=== PATIENT | female | born 1940 | race Caucasian/White ===

== ENCOUNTER → 2017-05-26 12:56 | Outpatient (POV) | payer MEDICARE, OTHER, SELFPAY | PROVIDERS: Visit Provider Nurse Practitioner Acute Care | DX: Z00.00 Encounter for general adult medical examination without abnormal findings (principal) ==

== ENCOUNTER → 2017-07-21 10:39 | Outpatient (POV) | payer MEDICARE, OTHER, SELFPAY | PROVIDERS: Family Provider Nurse Practitioner Family; Visit Provider Nurse Practitioner Acute Care | DX: Z00.00 Encounter for general adult medical examination without abnormal findings (principal) ==

== ENCOUNTER → 2019-10-27 09:37 | Outpatient (CLI) | payer MEDICARE, OTHER, SELFPAY ==
[2019-10-27 14:13] LABS: Basophils % 0.8 % (0.1-2.0); Eosinophils # 0.2 K/mm3 (0.0-0.4); Eosinophils % 4.4 % (0.1-12.0); Hematocrit 37.8 % (37.0-47.0); Hemoglobin 12.3 g/dL (12.2-16.2); Lymphocytes # 1.3 K/mm3 (0.7-4.5); Lymphocytes % 24.5 % (10-50); Mean Corpuscular HGB Conc 32.5 g/dL (31.8-35.4); Mean Corpuscular Volume 92.1 fl (81-99); Monocytes # 0.3 K/mm3 (0.1-1.0); Monocytes % 4.8 % (1.7-9.3); Neutrophils # 3.5 K/mm3 (1.8-7.8); Neutrophils % 65.5 % (37.0-80.0); Platelet Count 331 K/mm3 (142-424); Red Blood Count 4.11 M/mm3 (4.20-5.40); Red Cell Distribution Width 14.8 % (11.5-17.5); White Blood Count 5.4 K/mm3 (4.8-10.8)
[2019-10-27 14:19] LABS: Alanine Aminotransferase 12 U/L (12-78); Albumin Level 4.1 g/dl (3.5-5.0); Albumin/Globulin Ratio 1.8 (1.1-1.8); Alkaline Phosphatase 93 U/L (38-126); Anion Gap 14.4 mEq/L (5-15); Aspartate Amino Transferase 17 U/L (14-36); Bilirubin,Total 0.3 mg/dl (0.2-1.3); Blood Urea Nitrogen 18 mg/dl (7-17); Calcium 9.3 mg/dl (8.4-10.2); Carbon Dioxide 26 mmol/L (22.0-30.0); Chloride 105 mmol/L (98-107); Estimated Glomerular Filt Rate 33 ml/min (>60); GFR (African American) 40 ML/MIN (>60); Globulin 2.3 g/dL (1.3-3.2); Glucose 122 mg/dl (74-100); Iron 26 ug/dL (37-170); Potassium 4.4 mmoL/L (3.5-5.1); Sodium 141 mmol/L (136-145); Total Protein,Serum 6.4 g/dl (6.3-8.2)
[2019-10-27 14:34] LABS: Total Iron Binding Capacity 325 ug/dL (265-497)
[2019-10-28 12:35] LABS: Folate >20.0 ng/mL (>3.0); Vitamin B12 1725 pg/mL (232-1245)
== END ==
PROVIDERS: PCP Nurse Practitioner Family; Visit Provider Internal Medicine Hematology & Oncology
DX: D50.9 Iron deficiency anemia, unspecified (principal)
CPT/HCPCS: 36415; 80053; 82607; 82728; 82746; 83540; 83550; 85025

== ENCOUNTER → 2020-03-27 16:37 | Outpatient (CLI) | payer MEDICARE, OTHER, SELFPAY ==
[2020-03-27 16:41] LABS: Microscopic, Urine URINE MICROSCOPIC (MICROSCOPIC)
[2020-03-27 18:14] LABS: Appearance,Urine CLEAR (Clear); Bilirubin,Urine Negative (Negative); Blood, Urine TRACE-I (Negative); Color,Urine YELLOW (Yellow); Glucose,Urine (UA) Negative (Negative); Ketones,Urine Negative (Negative); Leukocyte Esterase,Urine Negative (Negative); Nitrate,Urine Negative (Negative); PH,Urine 5.5 (5.0-8.5); Protein,Urine Negative (Negative); Specific Gravity, Urine >= 1.030 (1.005-1.030); Urobilinogen,Urine 0.2 EU/dl (0.2)
[2020-03-27 18:24] LABS: Creatinine,Urine Random 201 mg/dL (Not Estab.)
== END ==
PROVIDERS: Visit Provider Internal Medicine Nephrology
DX: N18.30 Chronic kidney disease, stage 3 unspecified (principal)
CPT/HCPCS: 81001; 82570; 84155; 84156; 84166

== ENCOUNTER → 2020-04-27 12:43 | Outpatient (CLI) | payer MEDICARE, OTHER, SELFPAY ==
--- NOTE | 2020-04-27 12:48 | US_ITS ---
PROCEDURE: US KIDNEY CLINICAL INDICATION: CKD STAGE 3 COMPARISON: No exams were available for comparison FINDINGS: The right kidney is [id number]. No hydronephrosis, or renal mass or perinephric fluid collection is evident. The left kidney is [id number]. No hydronephrosis, or renal mass or perinephric fluid collection is evident. There is bilateral renal cortical thinning IMPRESSION: Bilateral renal cortical thinning otherwise negative renal ultrasound Dictated by: Marv Washington MD 04/27/2020 17:50 Marv Washington MD in [place] 04/27/2020 17:50
== END ==
PROVIDERS: PCP Nurse Practitioner Family; Visit Provider Internal Medicine Nephrology
DX: N18.30 Chronic kidney disease, stage 3 unspecified (principal)
CPT/HCPCS: 76770

== ENCOUNTER → 2020-05-12 09:55 | Outpatient (CLI) | payer MEDICARE, OTHER, SELFPAY ==
[2020-05-12 09:59] LABS: Microscopic, Urine URINE MICROSCOPIC (MICROSCOPIC)
[2020-05-12 13:49] LABS: Basophils # 0.1 K/mm3 (0-0.2); Basophils % 1.3 % (0.1-2.0); Eosinophils # 0.3 K/mm3 (0.0-0.4); Eosinophils % 5.3 % (0.1-12.0); Hematocrit 43.3 % (37.0-47.0); Hemoglobin 13.9 g/dL (12.2-16.2); Lymphocytes # 1.1 K/mm3 (0.7-4.5); Lymphocytes % 21.3 % (10-50); Mean Corpuscular Hemoglobin 30.1 pg (27.0-31.2); Mean Corpuscular Volume 93.8 fl (81-99); Mean Platelet Volume 8.6 fl (7.4-10.4); Monocytes # 0.3 K/mm3 (0.1-1.0); Monocytes % 5.9 % (1.7-9.3); Neutrophils # 3.4 K/mm3 (1.8-7.8); Neutrophils % 66.3 % (37.0-80.0); Platelet Count 316 K/mm3 (142-424); Red Blood Count 4.61 M/mm3 (4.20-5.40); White Blood Count 5.1 K/mm3 (4.8-10.8)
[2020-05-12 13:55] LABS: Albumin Level 3.8 g/dl (3.5-5.0); Anion Gap 15.9 mEq/L (5-15); Blood Urea Nitrogen 14 mg/dl (7-17); Calcium 9.5 mg/dl (8.4-10.2); Carbon Dioxide 24 mmol/L (22.0-30.0); Chloride 106 mmol/L (98-107); Estimated Glomerular Filt Rate 36 ml/min (>60); GFR (African American) 44 ML/MIN (>60); Glucose 160 mg/dl (74-100); Potassium 3.9 mmoL/L (3.5-5.1); Sodium 142 mmol/L (136-145)
[2020-05-12 14:09] LABS: Intact Parathyroid Hormone 26.4 pg/mL (7.5-53.5)
[2020-05-12 14:13] LABS: 25-OH Vitamin D, Total 13.9 ng/mL (30-100)
[2020-05-12 14:27] LABS: Creatinine,Urine Random 253 mg/dL (Not Estab.)
[2020-05-12 14:56] LABS: Appearance,Urine Turbid (Clear); Bilirubin,Urine Negative (Negative); Blood, Urine TRACE-I (Negative); Color,Urine YELLOW (Yellow); Glucose,Urine (UA) Negative (Negative); Ketones,Urine Negative (Negative); Leukocyte Esterase,Urine Negative (Negative); Nitrate,Urine Negative (Negative); Protein,Urine TRACE (Negative); Specific Gravity, Urine >= 1.030 (1.005-1.030); Urobilinogen,Urine 0.2 EU/dl (0.2)
[2020-05-12 15:00] LABS: Bacteria,Urine 2+ /lpf
[2020-05-16 11:22] LABS: Calcium, Ionized 5.2 mg/dL (4.5-5.6)
== END ==
PROVIDERS: Visit Provider Internal Medicine Nephrology
DX: N18.30 Chronic kidney disease, stage 3 unspecified (principal); E55.9 Vitamin D deficiency, unspecified; R82.90 Unspecified abnormal findings in urine
CPT/HCPCS: 36415; 80069; 81001; 82306; 82330; 82570; 83970; 84155; 85025; 87086

== ENCOUNTER → 2020-05-22 14:51 | Outpatient (POV) | payer MEDICARE, OTHER, SELFPAY | PROVIDERS: Visit Provider Internal Medicine Nephrology | DX: Z00.00 Encounter for general adult medical examination without abnormal findings (principal) ==

== ENCOUNTER → 2020-11-09 08:04 | Outpatient (CLI) | payer MEDICARE, OTHER, SELFPAY ==
[2020-11-09 08:08] LABS: Microscopic, Urine URINE MICROSCOPIC (MICROSCOPIC)
[2020-11-09 14:57] LABS: Appearance,Urine CLOUDY (Clear); Blood, Urine TRACE-I (Negative); Color,Urine YELLOW (Yellow); Glucose,Urine (UA) Negative (Negative); Ketones,Urine Negative (Negative); Leukocyte Esterase,Urine Negative (Negative); Nitrate,Urine Negative (Negative); Protein,Urine TRACE (Negative); Specific Gravity, Urine 1.025 (1.005-1.030); Urobilinogen,Urine 0.2 EU/dl (0.2)
[2020-11-09 15:04] LABS: Basophils # 0.1 K/mm3 (0-0.2); Basophils % 1.3 % (0.1-2.0); Eosinophils # 0.2 K/mm3 (0.0-0.4); Eosinophils % 3.5 % (0.1-12.0); Hematocrit 35.2 % (37.0-47.0); Hemoglobin 11.7 g/dL (12.2-16.2); Lymphocytes # 1.2 K/mm3 (0.7-4.5); Lymphocytes % 21.4 % (10-50); Mean Corpuscular HGB Conc 33.2 g/dL (31.8-35.4); Mean Corpuscular Hemoglobin 29.9 pg (27.0-31.2); Mean Corpuscular Volume 89.9 fl (81-99); Mean Platelet Volume 9.6 fl (7.4-10.4); Monocytes # 0.4 K/mm3 (0.1-1.0); Monocytes % 7.1 % (1.7-9.3); Neutrophils # 3.7 K/mm3 (1.8-7.8); Neutrophils % 66.7 % (37.0-80.0); Platelet Count 337 K/mm3 (142-424); Red Blood Count 3.91 M/mm3 (4.20-5.40); Red Cell Distribution Width 14.7 % (11.5-17.5); White Blood Count 5.5 K/mm3 (4.8-10.8)
[2020-11-09 15:17] LABS: Bilirubin,Urine 1+ (Negative)
[2020-11-09 15:24] LABS: Bacteria,Urine 2+ /lpf; WBC,Urine TNTC #/hpf (0-3)
[2020-11-09 15:38] LABS: 25-OH Vitamin D, Total 30.3 ng/mL (30-100)
[2020-11-09 15:46] LABS: Chloride 107 mmol/L (98-107); Sodium 138 mmol/L (136-145)
[2020-11-09 15:47] LABS: Albumin Level 3.4 g/dl (3.5-5.0); Potassium 3.8 mmoL/L (3.5-5.1)
[2020-11-09 15:49] LABS: Anion Gap 11.8 mEq/L (5-15); Blood Urea Nitrogen 14 mg/dl (7-17); Carbon Dioxide 23 mmol/L (22.0-30.0); Estimated Glomerular Filt Rate 36 ml/min (>60); GFR (African American) 44 ML/MIN (>60)
[2020-11-09 15:50] LABS: Calcium 8.6 mg/dl (8.4-10.2); Glucose 129 mg/dl (74-100); Phosphorous 3.9 mg/dl (2.5-4.5)
== END ==
PROVIDERS: Visit Provider Internal Medicine Nephrology
DX: N18.30 Chronic kidney disease, stage 3 unspecified (principal); R82.90 Unspecified abnormal findings in urine
CPT/HCPCS: 36415; 80069; 81001; 82306; 85025; 87086

== ENCOUNTER → 2020-11-16 13:43 | Outpatient (POV) | payer MEDICARE, OTHER, SELFPAY | PROVIDERS: Visit Provider Internal Medicine Nephrology | DX: Z00.00 Encounter for general adult medical examination without abnormal findings (principal) ==

== ENCOUNTER → 2022-01-14 18:25 | Outpatient (CLI) | payer MEDICARE, OTHER, SELFPAY ==
[2022-01-14 18:52] LABS: MANUAL DIFFERENTIAL MANUAL DIFFERENTIAL (MANUAL DIFF); Microscopic, Urine URINE MICROSCOPIC (MICROSCOPIC)
[2022-01-14 19:28] LABS: Appearance,Urine CLOUDY (Clear); Bilirubin,Urine Negative (Negative); Blood, Urine TRACE-L (Negative); Color,Urine YELLOW (Yellow); Glucose,Urine (UA) Negative (Negative); Ketones,Urine Negative (Negative); Leukocyte Esterase,Urine Negative (Negative); Nitrate,Urine Negative (Negative); Protein,Urine TRACE (Negative); Specific Gravity, Urine >= 1.030 (1.005-1.030); Urobilinogen,Urine 0.2 EU/dl (0.2)
[2022-01-14 19:30] LABS: Albumin Level 3.7 g/dl (3.5-5.0); Anion Gap 15.2 mEq/L (5-15); Blood Urea Nitrogen 12 mg/dl (7-17); Calcium 8.8 mg/dl (8.4-10.2); Carbon Dioxide 27 mmol/L (22.0-30.0); Chloride 103 mmol/L (98-107); Estimated Glomerular Filt Rate 36 ml/min (>60); GFR (African American) 43 ML/MIN (>60); Glucose 116 mg/dl (74-100); Phosphorous 3.6 mg/dl (2.5-4.5); Potassium 4.2 mmoL/L (3.5-5.1); Sodium 141 mmol/L (136-145)
[2022-01-14 19:32] LABS: Basophils # 0.1 K/mm3 (0-0.2); Basophils % 1.4 % (0.1-2.0); Eosinophils # 0.4 K/mm3 (0.0-0.4); Eosinophils % 5.9 % (0.1-12.0); Hematocrit 46.8 % (37.0-47.0); Hemoglobin 14.8 g/dL (12.2-16.2); Lymphocytes # 1.8 K/mm3 (0.7-4.5); Lymphocytes % 27.3 % (10-50); Mean Corpuscular HGB Conc 31.6 g/dL (31.8-35.4); Mean Corpuscular Volume 98.1 fl (81-99); Monocytes # 0.6 K/mm3 (0.1-1.0); Monocytes % 9.2 % (1.7-9.3); Neutrophils # 3.7 K/mm3 (1.8-7.8); Neutrophils % 56.2 % (37.0-80.0); Platelet Count 371 K/mm3 (142-424); Red Blood Count 4.77 M/mm3 (4.20-5.40); Red Cell Distribution Width 15.5 % (11.5-17.5); White Blood Count 6.6 K/mm3 (4.8-10.8)
[2022-01-14 19:36] LABS: Creatinine,Urine Random 267 mg/dL (Not Estab.)
[2022-01-14 19:47] LABS: 25-OH Vitamin D, Total 34.2 ng/mL (30-100)
[2022-01-14 20:08] LABS: Bacteria,Urine 1+ /lpf; RBC,Urine Occasional #/hpf (0-3)
[2022-01-14 20:29] LABS: Eosinophils % 5 % (0-3); Lymphocytes % 28 % (10-50); Monocytes % 9 % (2-9); Neutrophils % 58 % (42-76); Platelet Estimate Normal; RBC Morphology Normal; Total Cells Counted 100
== END ==
PROVIDERS: PCP Family Medicine; Visit Provider Internal Medicine Nephrology
DX: N18.32 Chronic kidney disease, stage 3b (principal); E55.9 Vitamin D deficiency, unspecified
CPT/HCPCS: 80069; 81001; 82306; 82570; 83970; 84155; 85007; 85014; 85018; 85048; 85049

== ENCOUNTER → 2022-01-21 12:37 | Outpatient (POV) | payer MEDICARE, OTHER, SELFPAY | PROVIDERS: Visit Provider Internal Medicine Nephrology | DX: Z00.00 Encounter for general adult medical examination without abnormal findings (principal) ==

== ENCOUNTER 2022-07-29 16:02 | Emergency (ER) | payer MEDICARE, OTHER, SELFPAY ==
[2022-07-29 16:04] VITALS: BP 164/79; PULSE 100; RESP 18; TEMP 36.4; O2SAT 100; BMI 24.6
--- NOTE | 2022-07-29 16:11 | PC.NURSE ---
[id number] ED MD AT BEDSIDE FOR EVALUATION
--- NOTE | 2022-07-29 16:15 | XR_ITS ---
PROCEDURE INFORMATION: Exam: XR Chest Exam date and time: 07/29/2022 4:37 PM Age: 82 years old Clinical indication: Pain; On breathing; Additional info: Rib pain TECHNIQUE: Imaging protocol: Radiologic exam of the chest. Views: 1 view. COMPARISON: No relevant prior studies available. FINDINGS: Lungs: Unremarkable. No consolidation. Pleural spaces: Unremarkable. No pleural effusion. No pneumothorax. Heart/Mediastinum: Unremarkable. No cardiomegaly. Bones/joints: Unremarkable. IMPRESSION: No acute findings.
--- NOTE | 2022-07-29 16:33 | ECG_ITS ---
APPROVED REPORT Exam: Resting ECG HR:74 bpm ECG Measurements Heart Rate 74 AXES IL 182 P 75 QRSd 80 QRS 70 QT 363 T 71 QTc 390 Conclusion SINUS RHYTHM LEFT ATRIAL ENLARGEMENT [-0.1mV P-WAVE IN V1/V2] LOW QRS VOLTAGE [QRS DEFLECTION < 0.5/1.0 mV IN LIMB/CHEST LEADS] Late R wave progression - old ABNORMAL ECG UNCONFIRMED REPORT Electronically signed by : Jovany Mark MD 07/29/2022 20:29:00
--- NOTE | 2022-07-29 16:34 | HMH.EDGENADL ---
Discharge Plan Disposition Patient Disposition: Home, Self-Care Condition: Good Prescriptions Prescriptions: New diazepam [Valium] 2 mg tablet 2 mg PO BID Qty: 14 0RF tramadol 50 mg tablet 50 mg PO Q8H PRN (Reason: pain) Qty: 21 0RF No Action omeprazole 40 mg capsule,delayed release(DR/EC) 40 mg PO DAILY cyanocobalamin (vitamin B-12) 2,500 mcg tablet 2,500 mcg PO DAILY cholecalciferol (vitamin D3) [Vitamin D3] 50 mcg (2,000 unit) capsule 50 mcg PO DAILY folic acid 400 mcg tablet 0.4 mg PO DAILY biotin 1,000 mcg tablet,chewable 1,000 mcg PO DAILY zolpidem 5 mg tablet 5 mg PO HS PRN levothyroxine 100 mcg tablet 100 mcg PO DAILY azithromycin [Zithromax] 250 mg tablet See Rx Instructions PO .COMPLEX Qty: 6 0RF Rx Instructions: For 250 mg dose pack: take 500 mg today (day 1), then 250 mg for 4 days (days 2-5) PO codeine-guaifenesin 10-100 mg/5 mL liquid 10 ml PO Q4-6H PRN (Reason: cough) Qty: 120 1RF amlodipine 5 MG tablet 5 mg PO DAILY estradiol 0.5 MG tablet 0.5 mg PO DAILY Label Comments: TAKE 1 TABLET BY MOUTH EVERY DAY losartan 100 MG tablet 100 mg PO DAILY Referrals Follow up/Referrals: Jovany Mark MD [Primary Care Provider] - See instructions Clinical Impressions Clinical Impression: Acute left flank pain, Muscle spasm, Rib pain on left side Instructions Patient Instructions: DI for Low Back Pain Discharge ED Provider: Jacklyn Harper General Adult HPI General Chief complaint: Back Pain/Injury Stated complaint: back spasms Time Seen by Provider: 07/29/22 16:08 Mode of Arrival: Ambulatory Source of Information: Patient Limitations: No Limitations Description of Symptoms (Recalled from ER Triage Doc. by RN): PT WITH C/O LEFT SIDED BACK PAIN AND SPASMS X 1 WEEK, WORSE TODAY History of Present Illness HPI narrative: Patient is a 82-year-old female who is complaining of left-sided flank rib pain. Patient's been having this pain off and on one week. Patient stated that the pain on the left side is significantly worse feels like a spasm. Hurts when she moves or turns. She has been eating and drinking well. No nausea vomiting diarrhea. No urinary symptoms. Onset (ago): week(s) Location: chest, back and abdomen Radiation: non-radiation Severity: moderate Severity scale (1-10): 9 Quality: stabbing and sharp Consistency: constant Relieving factors: none Exacerbating factors: none Associated symptoms: denies other symptoms Treatments prior to arrival: none Related Data Home Medications Medication Instructions Recorded Confirmed amlodipine 5 mg tablet 5 mg PO DAILY htn 09/06/18 03/14/22 estradiol 0.5 mg tablet 0.5 mg PO DAILY uknown 09/06/18 03/14/22 losartan 100 mg tablet 100 mg PO DAILY htn 09/06/18 03/14/22 biotin 1,000 mcg chewable tablet 1,000 mcg PO DAILY 12/26/21 03/14/22 cholecalciferol (vitamin D3) 50 50 mcg PO DAILY 12/26/21 03/14/22 mcg (2,000 unit) capsule (Vitamin D3) cyanocobalamin (vitamin B-12) 2,500 mcg PO DAILY 12/26/21 03/14/22 2,500 mcg tablet folic acid 400 mcg tablet 0.4 mg PO DAILY 12/26/21 03/14/22 levothyroxine 100 mcg tablet 100 mcg PO DAILY thyroid 12/26/21 03/14/22 omeprazole 40 mg capsule,delayed 40 mg PO DAILY GERD 12/26/21 03/14/22 release zolpidem 5 mg tablet 5 mg PO HS PRN 12/26/21 03/14/22 Previous Rx's Medication Instructions Recorded azithromycin 250 mg tablet See Rx Instructions PO .COMPLEX #6 03/14/22 (Zithromax) tabs codeine 10 mg-guaifenesin 100 mg/5 10 ml PO Q4-6H PRN cough #120 mL 03/14/22 mL oral liquid diazepam 2 mg tablet (Valium) 2 mg PO BID #14 tabs 07/29/22 tramadol 50 mg tablet 50 mg PO Q8H PRN pain #21 tabs 07/29/22 Allergies Allergy/AdvReac Type Severity Reaction Status Date / Time cephalexin [From Keflex] Allergy Unknown Verified 03/14/22 09:12 [facility] Disclaimer: The information contained i
[2022-07-29 16:46] LABS: Basophils # 0.1 K/mm3 (0-0.2); Basophils % 0.9 % (0.1-2.0); Eosinophils # 0.2 K/mm3 (0.0-0.4); Eosinophils % 1.9 % (0.1-12.0); Hemoglobin 14.3 g/dL (12.2-16.2); Lymphocytes # 1.3 K/mm3 (0.7-4.5); Mean Corpuscular HGB Conc 31.8 g/dL (31.8-35.4); Mean Corpuscular Hemoglobin 30.9 pg (27.0-31.2); Mean Corpuscular Volume 97.2 fl (81-99); Mean Platelet Volume 8.2 fl (7.4-10.4); Monocytes # 0.7 K/mm3 (0.1-1.0); Monocytes % 7.7 % (1.7-9.3); Neutrophils # 6.6 K/mm3 (1.8-7.8); Neutrophils % 74.5 % (37.0-80.0); Platelet Count 354 K/mm3 (142-424); Red Blood Count 4.63 M/mm3 (4.20-5.40); Red Cell Distribution Width 13.6 % (11.5-17.5); White Blood Count 8.9 K/mm3 (4.8-10.8)
[2022-07-29 16:50] LABS: Chloride 103 mmol/L (98-107); Potassium 3.8 mmoL/L (3.5-5.1); Sodium 139 mmol/L (136-145)
[2022-07-29 16:53] LABS: Alanine Aminotransferase 16 U/L (12-78); Albumin Level 4.4 g/dl (3.5-5.0); Albumin/Globulin Ratio 1.8 (1.1-1.8); Alkaline Phosphatase 86 U/L (38-126); Anion Gap 14.8 mEq/L (5-15); Aspartate Amino Transferase 22 U/L (14-36); Bilirubin,Total 0.5 mg/dl (0.2-1.3); Blood Urea Nitrogen 17 mg/dl (7-17); Calcium 8.8 mg/dl (8.4-10.2); Carbon Dioxide 25 mmol/L (22.0-30.0); Creatine Kinase 39 U/L (30-135); Creatinine Clearance Estimated 25 mL/min (50-200); Estimated Glomerular Filt Rate 33 ml/min (>60); GFR (African American) 40 ML/MIN (>60); Globulin 2.4 g/dL (1.3-3.2); Glucose 113 mg/dl (74-100); Lipase 97 U/L (23-300); Total Protein,Serum 6.8 g/dl (6.3-8.2)
[2022-07-29 16:55] LABS: Activated Partial Thrombo Time 23.9 seconds (22.8-30.6); INR 0.87 (0.9-1.1); Prothrombin Time 9.5 seconds (10.1-12.5)
[2022-07-29 17:03] LABS: Creatine Kinase MB 0.4 ng/ml (0.0-2.03)
[2022-07-29 17:07] LABS: Troponin I < 0.01 ng/ml (0.00-0.034)
[2022-07-29 17:10] LABS: D-Dimer 0.76 ug/mL (0.0-0.5)
[2022-07-29 17:16] VITALS: BP 120/56; PULSE 68; O2SAT 99
--- NOTE | 2022-07-29 17:16 | PC.NURSE ---
checked on pt at this time, pt reports continuing to have back spasms, reports to pt I will notify GERALDINE LOPES, pt states no needs at this time, family at BS
[2022-07-29 17:35] LABS: Microscopic, Urine URINE MICROSCOPIC (MICROSCOPIC)
--- NOTE | 2022-07-29 17:53 | PC.NURSE ---
ROUNDED ON PT, C/O CONTINUED SPASM, NOTIFIED
[2022-07-29 17:59] LABS: Appearance,Urine CLEAR (Clear); Bilirubin,Urine Negative (Negative); Blood, Urine Negative (Negative); Color,Urine YELLOW (Yellow); Glucose,Urine (UA) Negative (Negative); Ketones,Urine Negative (Negative); Leukocyte Esterase,Urine Negative (Negative); Nitrate,Urine Negative (Negative); Protein,Urine Negative (Negative); Urobilinogen,Urine 0.2 EU/dl (0.2)
--- NOTE | 2022-07-29 18:04 | CT_ITS ---
PROCEDURE INFORMATION: Exam: CT Abdomen And Pelvis With Contrast Exam date and time: 07/29/2022 7:28 PM Age: 82 years old Clinical indication: Abdominal pain; Flank; Left; Additional info: Left flank pain TECHNIQUE: Imaging protocol: Computed tomography of the abdomen and pelvis with contrast. Radiation optimization: All CT scans at this facility use at least one of these dose optimization techniques: automated exposure control; mA and/or kV adjustment per patient size (includes targeted exams where dose is matched to clinical indication); or iterative reconstruction. Contrast material: ISOVUE; Contrast volume: 75 ml; Contrast route: IV; REPORTING DATA: Count of CT and Cardiac NM exams in prior 12 months: This patient has received [address] and 0 known cardiac nuclear medicine studies in the 12 months prior to the current study. COMPARISON: US KIDNEY 04/27/2020 1:08 PM FINDINGS: Diaphragm: Moderate sized hiatal hernia. Liver: No mass or hepatomegaly. Gallbladder and bile ducts: Cholecystectomy. Mildly dilated intrahepatic and extrahepatic bile ducts without obstructing stone or mass. Pancreas: Normal. No ductal dilation. Spleen: Normal. No splenomegaly. Adrenal glands: Normal. No mass. Kidneys and ureters: 3 and 2 mm nonobstructing left renal stones. Mild dilatation of the renal pelvis and calices bilaterally without evidence of obstructing ureteral stone or mass. Chronic left renal cortical scarring. Subcentimeter left renal cyst. Stomach and bowel: Colonic diverticulosis. Appendix: No evidence of appendicitis. Intraperitoneal space: Unremarkable. No free air. No significant fluid collection. Vasculature: Moderate atherosclerotic changes are seen within the abdominal aorta and branch vasculature without evidence of aneurysm. Lymph nodes: Unremarkable. No enlarged lymph nodes. Urinary bladder: Unremarkable as visualized. Reproductive: Hysterectomy. Bones/joints: Unremarkable. No acute fracture. Soft tissues: Unremarkable. IMPRESSION: 1. Left-sided nonobstructing nephrolithiasis. 2. Subcentimeter left renal cyst. No follow-up imaging is recommended. 3. Mild bilateral pelvicaliectasis without evidence of obstructing ureteral stone or mass. 4. Hiatal hernia. 5. Diverticulosis. 6. Mildly dilated intrahepatic and extrahepatic bile ducts without evidence of obstructing stone or mass. Possible normal finding following cholecystectomy. Consider MRCP for further evaluation.
--- NOTE | 2022-07-29 18:04 | CT_ITS ---
PROCEDURE INFORMATION: Exam: CTA Chest With Contrast Exam date and time: 07/29/2022 7:28 PM Age: 82 years old Clinical indication: Pain; On breathing; Additional info: Left lung pain/elevated dimer TECHNIQUE: Imaging protocol: Computed tomographic angiography of the chest with contrast. 3D rendering (Not supervised by radiologist): MIP and/or 3D reconstructed images were created by the technologist. Radiation optimization: All CT scans at this facility use at least one of these dose optimization techniques: automated exposure control; mA and/or kV adjustment per patient size (includes targeted exams where dose is matched to clinical indication); or iterative reconstruction. Contrast material: ISOVUE; Contrast volume: 70 ml; Contrast route: INTRAVENOUS (IV); REPORTING DATA: Count of CT and Cardiac NM exams in prior 12 months: This patient has received [address] and 0 known cardiac nuclear medicine studies in the 12 months prior to the current study. COMPARISON: CR XR CHEST PORTABLE 07/29/2022 4:37 PM FINDINGS: Pulmonary arteries: Normal. No pulmonary emboli. Aorta: Mild atherosclerotic changes are seen within the thoracic aorta without evidence of aneurysm. No aortic dissection. Lungs: Unremarkable. No consolidation. No masses. Pleural spaces: Unremarkable. No pneumothorax. No pleural effusion. Heart: Unremarkable. No cardiomegaly. No pericardial effusion. Lymph nodes: Unremarkable. No enlarged lymph nodes. Diaphragm: Hiatal hernia. Bones/joints: Unremarkable. No acute fracture. Soft tissues: Unremarkable. IMPRESSION: No acute findings.
[2022-07-29 18:05] LABS: Lactic Acid 1.3 mmol/L (0.7-2.1)
[2022-07-29 18:30] VITALS: BP 144/65; PULSE 68; O2SAT 97
--- NOTE | 2022-07-29 18:49 | PC.NURSE ---
PT REPORTS NO RELIEF FROM MORPHINE, NOTIFIED
[2022-07-29 19:01] VITALS: BP 151/65; PULSE 83; O2SAT 100
--- NOTE | 2022-07-29 19:01 | PC.NURSE ---
checked on pt at this time, pt reports pain has not improved, but is no worse, pt states does not want any other medication at this time. Asked pt to let staff know if pain worsens, explained to pt we dont want her to be in pain, pt verbalized understanding. explained to pt should go to Ct soon she only has small amount of ivf left. family at BS, call light in reach
[2022-07-29 20:00] VITALS: BP 149/58; PULSE 88; O2SAT 97
[2022-07-29 20:36] LABS: Troponin I < 0.01 ng/ml (0.00-0.034)
[2022-07-29 20:40] VITALS: BP 145/60; PULSE 80; RESP 20; TEMP 36.7; O2SAT 100
== END 2022-07-29 20:47 | disposition home or self-care (01) ==
PROVIDERS: Emergency Provider Emergency Medicine; PCP Internal Medicine Adolescent Medicine
DX: R07.81 Pleurodynia (principal); R10.9 Unspecified abdominal pain
CPT/HCPCS: 71045; 71275; 74177; 80053; 81001; 82550; 82553; 83605; 83690; 84484; 85025; 85378; 85610; 85730; 93005; 96374; 96375; 96376; 99285; J0131; J2405; Q9967

== ENCOUNTER 2022-07-31 08:20 | Observation (INO) | payer MEDICARE, OTHER, SELFPAY ==
[2022-07-31] VITALS (14 sets, daily range): BP systolic 134–177; BP diastolic 58–106; PULSE 78–118; RESP 12–18; TEMP 36.4–36.7; O2SAT 92–99; BMI 24.0; BMI 24.5
--- NOTE | 2022-07-31 | ECG_ITS ---
APPROVED REPORT Exam: Resting ECG HR:104 bpm ECG Measurements Heart Rate 104 AXES MA 172 P 74 QRSd 85 QRS 68 QT 356 T 82 QTc 416 Conclusion SINUS TACHYCARDIA Left atrial abnormality LOW QRS VOLTAGE [QRS DEFLECTION < 0.5/1.0 mV IN LIMB/CHEST LEADS] NONSPECIFIC ST ELEVATION [0.05+ mV ST ELEVATION] ABNORMAL ECG UNCONFIRMED REPORT Electronically signed by : Jovany Mark MD 08/02/2022 14:27:08
[2022-07-31 08:44] LABS: Basophils # 0.1 K/mm3 (0-0.2); Basophils % 0.5 % (0.1-2.0); Eosinophils # 0.1 K/mm3 (0.0-0.4); Eosinophils % 0.8 % (0.1-12.0); Hematocrit 43.3 % (37.0-47.0); Lymphocytes # 1.7 K/mm3 (0.7-4.5); Lymphocytes % 9.5 % (10-50); MANUAL DIFFERENTIAL MANUAL DIFFERENTIAL (MANUAL DIFF); Mean Corpuscular HGB Conc 32.4 g/dL (31.8-35.4); Mean Corpuscular Hemoglobin 31.2 pg (27.0-31.2); Mean Corpuscular Volume 96.4 fl (81-99); Mean Platelet Volume 8.5 fl (7.4-10.4); Monocytes # 1.1 K/mm3 (0.1-1.0); Monocytes % 6.3 % (1.7-9.3); Neutrophils # 14.4 K/mm3 (1.8-7.8); Neutrophils % 82.9 % (37.0-80.0); Platelet Count 441 K/mm3 (142-424); Red Cell Distribution Width 13.6 % (11.5-17.5); White Blood Count 17.4 K/mm3 (4.8-10.8)
[2022-07-31 08:50] LABS: Chloride 104 mmol/L (98-107); Potassium 3.8 mmoL/L (3.5-5.1); Sodium 137 mmol/L (136-145)
[2022-07-31 08:52] LABS: Alanine Aminotransferase 18 U/L (12-78); Aspartate Amino Transferase 23 U/L (14-36); Blood Urea Nitrogen 15 mg/dl (7-17); Creatinine Clearance Estimated 26 mL/min (50-200); Estimated Glomerular Filt Rate 36 ml/min (>60); GFR (African American) 43 ML/MIN (>60)
[2022-07-31 08:53] LABS: Albumin Level 4.1 g/dl (3.5-5.0); Albumin/Globulin Ratio 1.8 (1.1-1.8); Alkaline Phosphatase 81 U/L (38-126); Anion Gap 10.8 mEq/L (5-15); Bilirubin,Total 0.3 mg/dl (0.2-1.3); Calcium 10.1 mg/dl (8.4-10.2); Carbon Dioxide 26 mmol/L (22.0-30.0); Globulin 2.3 g/dL (1.3-3.2); Glucose 156 mg/dl (74-100); Lipase 126 U/L (23-300); Total Protein,Serum 6.4 g/dl (6.3-8.2)
[2022-07-31 08:57] LABS: Eosinophils % 1 % (0-3); Lymphocytes % 15 % (10-50); Monocytes % 5 % (2-9); Neutrophils % 79 % (42-76); Total Cells Counted 100
[2022-07-31 08:58] LABS: RBC Morphology Normal
[2022-07-31 08:59] LABS: Platelet Estimate Slight Increase
--- NOTE | 2022-07-31 09:05 | HMH.EDGENADL ---
Discharge Plan Disposition Patient Disposition: Admitted As Inpatient Condition: Fair Chief Complaint: Abdominal Pain Prescriptions Prescriptions: No Action omeprazole 40 mg capsule,delayed release(DR/EC) 40 mg PO DAILY cyanocobalamin (vitamin B-12) 2,500 mcg tablet 2,500 mcg PO DAILY cholecalciferol (vitamin D3) [Vitamin D3] 50 mcg (2,000 unit) capsule 50 mcg PO DAILY folic acid 400 mcg tablet 0.4 mg PO DAILY biotin 1,000 mcg tablet,chewable 1,000 mcg PO DAILY zolpidem 5 mg tablet 5 mg PO HS PRN levothyroxine 100 mcg tablet 100 mcg PO DAILY azithromycin [Zithromax] 250 mg tablet See Rx Instructions PO .COMPLEX Qty: 6 0RF Rx Instructions: For 250 mg dose pack: take 500 mg today (day 1), then 250 mg for 4 days (days 2-5) PO codeine-guaifenesin 10-100 mg/5 mL liquid 10 ml PO Q4-6H PRN (Reason: cough) Qty: 120 1RF diazepam [Valium] 2 mg tablet 2 mg PO BID Qty: 14 0RF tramadol 50 mg tablet 50 mg PO Q8H PRN (Reason: pain) Qty: 21 0RF amlodipine 5 MG tablet 5 mg PO DAILY estradiol 0.5 MG tablet 0.5 mg PO DAILY Label Comments: TAKE 1 TABLET BY MOUTH EVERY DAY losartan 100 MG tablet 100 mg PO DAILY Referrals Follow up/Referrals: Jovany Mark MD [Primary Care Provider] - See instructions Clinical Impressions Clinical Impression: Enteritis Instructions Patient Instructions: DI for Acute Abdominal Pain Discharge ED Provider: Ludin Reyes General Adult HPI General Chief complaint: Abdominal Pain Stated complaint: chest pain Time Seen by Provider: 07/31/22 08:28 Mode of Arrival: Wheelchair Source of Information: Patient Limitations: No Limitations Description of Symptoms (Recalled from ER Triage Doc. by RN): pt to the ED with epigastric pain that radiates to her middle back since 4am this morning accompanied by an epsiode of vomiting. pt reports she took two dises of omeprezole and 6 rolaids without relief. History of Present Illness HPI narrative: This is an 82-year-old female with history of hypertension and hyperlipidemia as well as anemia necessitating iron infusions presenting with vomiting. Patient states that she has been vomiting since 4 AM on 07/31, today's. Associated with epigastric abdominal pain that is 5 out of 10, does not radiate. Since that time, vomiting has become dark black, but she has not seen any dark stools or bright red blood per vomit or per rectum. Pain is epigastric, she states that it does not radiate and is not associated with fevers, chills, chest pain, shortness of breath, diarrhea, constipation, dysuria or hematuria. No recent travel, environmental exposures, trauma to the area, or any other concerns. Related Data Home Medications Medication Instructions Recorded Confirmed amlodipine 5 mg tablet 5 mg PO DAILY htn 09/06/18 03/14/22 estradiol 0.5 mg tablet 0.5 mg PO DAILY uknown 09/06/18 03/14/22 losartan 100 mg tablet 100 mg PO DAILY htn 09/06/18 03/14/22 biotin 1,000 mcg chewable tablet 1,000 mcg PO DAILY 12/26/21 03/14/22 cholecalciferol (vitamin D3) 50 50 mcg PO DAILY 12/26/21 03/14/22 mcg (2,000 unit) capsule (Vitamin D3) cyanocobalamin (vitamin B-12) 2,500 mcg PO DAILY 12/26/21 03/14/22 2,500 mcg tablet folic acid 400 mcg tablet 0.4 mg PO DAILY 12/26/21 03/14/22 levothyroxine 100 mcg tablet 100 mcg PO DAILY thyroid 12/26/21 03/14/22 omeprazole 40 mg capsule,delayed 40 mg PO DAILY GERD 12/26/21 03/14/22 release zolpidem 5 mg tablet 5 mg PO HS PRN 12/26/21 03/14/22 Previous Rx's Medication Instructions Recorded azithromycin 250 mg tablet See Rx Instructions PO .COMPLEX #6 03/14/22 (Zithromax) tabs codeine 10 mg-guaifenesin 100 mg/5 10 ml PO Q4-6H PRN cough #120 mL 03/14/22 mL oral liquid diazepam 2 mg tablet (Valium) 2 mg PO BID #14 tabs 07/29/22 tramadol 50 mg tablet 50 mg PO Q8H PRN pain #21 tabs 07/29/22 Allergies Allergy/AdvReac Type S
--- NOTE | 2022-07-31 09:08 | XR_ITS ---
FINAL REPORT CLINICAL HISTORY: epigastric pain and vomiting COMPARISON: 07/29/2022 FINDINGS: A single portable view of the chest was obtained. The heart size and pulmonary vascularity are within normal limits. The mediastinum is within normal limits. No acute pulmonary abnormality is identified. The bony thorax is intact. IMPRESSION: No active cardiopulmonary disease. Reviewed, Interpreted and Dictated by Mo Courtney III, MD Transcribed by Britta Bhakta Authenticated and [facility]
[2022-07-31 09:14] LABS: Troponin I < 0.01 ng/ml (0.00-0.034)
--- NOTE | 2022-07-31 09:33 | CT_ITS ---
FINAL REPORT TECHNIQUE: Postcontrast axial images through the abdomen and pelvis were performed. This study was performed with techniques to keep radiation doses as low as reasonably achievable, (ALARA). Individualized dose reduction techniques using automated exposure control or adjustment of mA and/or kV according to the patient's size were employed. CLINICAL HISTORY: bilious vomiting, epigastric abd pain COMPARISON: 07/29/2022 FINDINGS: Abdomen: There is mild atelectasis in the lung bases. There is a moderate hiatal hernia with marked wall edema, new since prior. The stomach is distended and fluid-filled. There are several enlarged lower mediastinal nodes of uncertain etiology, may be reactive versus neoplastic. The liver is normal in size and attenuation. The patient is status post cholecystectomy. The spleen is unremarkable. The adrenals are normal. The pancreas is unremarkable. There are several less than 3 mm nonobstructing left renal stones. Left renal scarring is identified. 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 There is a probable 2nd one in the upper pole of the left kidney. Moderate vascular calcification is identified. The aorta is normal in caliber. There is no free fluid. Pelvis: The appendix is normal. Note is made of sigmoid diverticulosis. There are multiple fluid-filled small bowel loops as well as distal colon wall thickening which are nonspecific, may represent colitis/enteritis. Findings are worse than previous. The urinary bladder is unremarkable. No free fluid, free air, abscess or adenopathy is identified. IMPRESSION: Moderate hiatal hernia with marked wall edema, worse since previous. Persistent lower mediastinal mild adenopathy, may be reactive or neoplastic. Fluid-filled small bowel loops and distal colon wall thickening, may represent enteritis/colitis. Finding is worse than previous. Other findings are stable since recent CT. Reviewed, Interpreted and Dictated by Mo Courtney III, MD Transcribed by Gwen Kunz Authenticated and [facility]
--- NOTE | 2022-07-31 09:55 | PC.NURSE ---
pt returned from radiology.
--- NOTE | 2022-07-31 10:31 | PC.NURSE ---
went in to f/u on pt's pain, pt states pain is unchanged. MD notified and CT scan ordered. pt notified of plan.
[2022-07-31 10:56] LABS: Coronavirus 19, PCR Not Detected (NotDetected); Influenza A, PCR Not Detected (NotDetected); Influenza B, PCR Not Detected (NotDetected)
[2022-07-31 11:11] LABS: Lactic Acid 1.8 mmol/L (0.7-2.1)
[2022-07-31 11:16] LABS: Microscopic, Urine URINE MICROSCOPIC (MICROSCOPIC)
[2022-07-31 11:20] LABS: Appearance,Urine CLEAR (Clear); Bilirubin,Urine Negative (Negative); Blood, Urine TRACE-I (Negative); Color,Urine YELLOW (Yellow); Glucose,Urine (UA) Negative (Negative); Ketones,Urine Negative (Negative); Leukocyte Esterase,Urine Negative (Negative); Nitrate,Urine Negative (Negative); Protein,Urine Negative (Negative); Specific Gravity, Urine <= 1.005 (1.005-1.030); Urobilinogen,Urine 0.2 EU/dl (0.2)
[2022-07-31 11:31] LABS: Bacteria,Urine Trace /lpf; RBC,Urine Occasional #/hpf (0-3); Squamous Epithelial Cell,Urine Occasional #/hpf (0-5)
[2022-07-31 11:42] LABS: Troponin I < 0.01 ng/ml (0.00-0.034)
--- NOTE | 2022-07-31 12:35 | PC.NURSE ---
PER ELIER MCDONALD, PATIENT IS COMPLAINING OF PAIN THAT SEEMS TO BE MORE CHEST
--- NOTE | 2022-07-31 12:44 | PC.NURSE ---
PATIENT ASSISTED TO BATHROOM
--- NOTE | 2022-07-31 12:59 | PC.NURSE ---
dr mita felton
--- NOTE | 2022-07-31 13:01 | PC.NURSE ---
Dr Reyes speaking with Dr Mark
--- NOTE | 2022-07-31 13:35 | HMH.PHAINT1 ---
Pharmacy Intervention Comments: MEDICATION RECONCILIATION COMPLETED ON PATIENT USING EXTERNAL FILL HISTORY FROM PHARMACY AND ANNA REPORT. -KINDRA PORTILLO, HELEND
--- NOTE | 2022-07-31 13:39 | PC.NURSE ---
report called to second floor
--- NOTE | 2022-07-31 13:48 | PC.NURSE ---
arrived by w/c to floor from ED
--- NOTE | 2022-07-31 14:37 | PC.NURSE ---
DAUGHTER TO BRING IN PATIENTS HOME MEDS IN THE AM
[2022-07-31 15:36] LABS: Troponin I < 0.01 ng/ml (0.00-0.034)
[2022-08-01] VITALS (14 sets, daily range): BP systolic 107–145; BP diastolic 51–64; PULSE 85–98; RESP 14–18; TEMP 36.4–37.2; O2SAT 91–98; BMI 25.7
--- NOTE | 2022-08-01 08:31 | EXP.SURG.CON ---
History of Present Illness *Admission Date: 08/01/22 *Reason for visit:: Epigastric pain *History of present illness: Patient is a 82-year-old female from [place] with history of hypertension, hyperlipidemia, anemia requiring iron transfusion, history of myelodysplastic syndrome. She presented to the emergency department early yesterday afternoon on 07/31/2022 with epigastric pain with vomiting. In the emergency department she was given IV fluid bolus, H2 saqib, proton pump inhibitor, GI cocktail. She was noted to have a hemoglobin of 14. Patient underwent CT scan of the abdomen and pelvis which revealed moderate hiatal hernia with marked wall edema, worse since previous. Persistent lower mediastinal mild adenopathy, may be reactive or neoplastic. Fluid-filled small bowel loops and distal colon wall thickening, may represent enteritis/colitis. Finding is worse than previous. Surgical consultation was obtained for possible EGD. She describes her symptoms as mainly substernal spasms . She had been seen in the emergency department 48 hours prior with complaints of severe left-sided rib/flank pain for a week or so. At that time she had undergone CT of the chest to rule out pulmonary embolism which revealed no acute findings . She also underwent a CT scan of the abdomen pelvis at that time which revealed some chronic findings including nephrolithiasis, small left renal cyst, mild bilateral pelvocaliectasis, hiatal hernia, diverticulosis, mildly dilated intra and extrahepatic bile ducts. Patient has previously undergone cholecystectomy. Patient has undergone multiple endoscopic procedures. She had pain endoscopy in [address] Rasheed performed EGD 2014. In 2016 Dr. Dee had performed EGD at which time she had 2 large gastric polyps, 6 cm hiatal hernia, presbyesophagus. Couple weeks later he had performed colonoscopy and she had a 15 mm ascending colon polyp and diverticulosis. She has not had subsequent endoscopic investigation. [facility] Disclaimer: The information contained in this section may have been updated after the patient was seen, as this information can be updated by other users. Medical History (Updated 08/01/22 @ 08:36 by Jovany Mark MD) GERD (gastroesophageal reflux disease) HLD (hyperlipidemia) Hypothyroidism Surgical History History of History of cholecystectomy History of hysterectomy Family History Father Cancer Social History (Updated 07/31/22 @ 14:23 by Aimee Montano RN) Smoking Status: Never smoker alcohol intake: never substance use type: denies use current occupational status: retired Travel in the last 8 weeks: None household members: none housing: apartment Meds Home Medications and Allergies Home Medications Medication Instructions Recorded Confirmed Type amlodipine 5 mg tablet 5 mg PO DAILY Hypertension 09/06/18 07/31/22 History estradiol 0.5 mg tablet 0.5 mg PO DAILY HORMONE REPLACEMENT 09/06/18 07/31/22 History losartan 100 mg tablet 100 mg PO DAILY Hypertension 09/06/18 07/31/22 History biotin 1,000 mcg chewable tablet 1,000 mcg PO DAILY Supplement 12/26/21 07/31/22 History cholecalciferol (vitamin D3) 50 50 mcg PO DAILY Supplement 12/26/21 07/31/22 History mcg (2,000 unit) capsule (Vitamin D3) cyanocobalamin (vitamin B-12) 2,500 mcg PO DAILY Supplement 12/26/21 07/31/22 History 2,500 mcg tablet folic acid 400 mcg tablet 0.4 mg PO DAILY Supplement 12/26/21 07/31/22 History omeprazole 40 mg capsule,delayed 40 mg PO DAILY Acid reflux 12/26/21 07/31/22 History release zolpidem 5 mg tablet 5 mg PO HSP PRN Insomnia 12/26/21 07/31/22 History levothyroxine 75 mcg tablet 75 mcg PO DAILY HYPOTHYROIDISM 07/31/22 07/31/22 History prednisone 20 mg tablet 20 mg PO DAILY STEROID 07/31/22 07/31/22 History New Prescriptions
--- NOTE | 2022-08-01 08:34 | EXP.HP ---
History of Present Illness *Admission Date: 07/31/22 *Reason for visit:: Abdominal pain *History of present illness: 82-year-old white female who is enjoyed excellent health with the exception of iron deficiency anemia and smoldering ill-defined myelodysplastic disease, who follows with hematology at [facility], who has had excellent functional status who over the past couple of weeks has had some back pain that she describes as left upper flank pain that occasionally goes into her stomach. She has had no vomiting or diarrhea. She went to the ER a couple of days ago but was improved after some fluids and sent home. Unfortunately this failed to improve her situation she came back to the emergency department on 07/31/2022 with intractable abdominal pain that was only responsive to Dilaudid. She described her pain as epigastric that flared up into her chest but that would be a 9 out of 10 pain in severity that would last several minutes and then resolved. She was given Zofran, Phenergan, IV fluids and I had the ER doctor gave her 5 mg of Reglan IV but this did not improve her situation and she was admitted for observation and further diagnostic testing. [facility] Disclaimer: The information contained in this section may have been updated after the patient was seen, as this information can be updated by other users. Medical History (Updated 08/01/22 @ 08:36 by Jovany Mark MD) GERD (gastroesophageal reflux disease) HLD (hyperlipidemia) Hypothyroidism Surgical History History of History of cholecystectomy History of hysterectomy Family History Father Cancer Social History (Updated 07/31/22 @ 14:23 by Aimee Montano, RN) Smoking Status: Never smoker alcohol intake: never substance use type: denies use current occupational status: retired Travel in the last 8 weeks: None household members: none housing: apartment Review of Systems Review of Systems Review of systems:: pertinent systems reviewed and negative unless documented below Meds Home Medications and Allergies Home Medications Medication Instructions Recorded Confirmed Type amlodipine 5 mg tablet 5 mg PO DAILY Hypertension 09/06/18 07/31/22 History estradiol 0.5 mg tablet 0.5 mg PO DAILY HORMONE REPLACEMENT 09/06/18 07/31/22 History losartan 100 mg tablet 100 mg PO DAILY Hypertension 09/06/18 07/31/22 History biotin 1,000 mcg chewable tablet 1,000 mcg PO DAILY Supplement 12/26/21 07/31/22 History cholecalciferol (vitamin D3) 50 50 mcg PO DAILY Supplement 12/26/21 07/31/22 History mcg (2,000 unit) capsule (Vitamin D3) cyanocobalamin (vitamin B-12) 2,500 mcg PO DAILY Supplement 12/26/21 07/31/22 History 2,500 mcg tablet folic acid 400 mcg tablet 0.4 mg PO DAILY Supplement 12/26/21 07/31/22 History omeprazole 40 mg capsule,delayed 40 mg PO DAILY Acid reflux 12/26/21 07/31/22 History release zolpidem 5 mg tablet 5 mg PO HSP PRN Insomnia 12/26/21 07/31/22 History levothyroxine 75 mcg tablet 75 mcg PO DAILY HYPOTHYROIDISM 07/31/22 07/31/22 History prednisone 20 mg tablet 20 mg PO DAILY STEROID 07/31/22 07/31/22 History New Prescriptions to Start Prescriptions: Allergies Allergy/AdvReac Type Severity Reaction Status Date / Time cephalexin [From Keflex] Allergy Unknown Verified 03/14/22 09:12 tizanidine [From Zanaflex] Allergy Unknown Verified 07/31/22 14:21 Exam Data for Last 24 hours Vital signs and Labs for Last 24 Hours: Temp Pulse Resp BP Pulse Ox 98.5 F 86 17 130/56 L 92 L 08/01/22 07:51 08/01/22 07:51 08/01/22 07:51 08/01/22 07:51 08/01/22 07:51 Laboratory Results - last 24 hr 07/31/22 08:30: WBC 17.4 H D, RBC 4.50, Hgb 14.0, Hct 43.3, MCV 96.4, MCH 31.2, MCHC 32.4, RDW 13.6, Plt Count 441 H, MPV 8.5, Neut % (Auto) 82.9 H, Lymph % (Auto) 9.5 L, [place] % (Auto) 6.3, Eos % (Au
--- NOTE | 2022-08-01 08:37 | EXP.ACUTE.PN ---
Subjective *Date: 08/01/22 *Time: 08:37 Interval history: Overnight patient felt a little bit better. Is been able to keep some Jell-O down. However, she still has 9 out of 10 intermittent epigastric pain. White count this morning was 17,000. Medical Exam Vital signs and Labs for Last 24 Hours: Vital Signs Temp Pulse Pulse Resp BP BP Pulse Ox 08/01/22 07:51 98.5 F 86 17 130/56 L 92 L 08/01/22 04:00 99.0 F 98 H 17 145/61 H 91 L 07/31/22 19:51 98.1 F 83 16 145/61 H 95 07/31/22 13:54 97.6 F 78 16 136/58 L 94 L 07/31/22 13:30 147/65 H 07/31/22 13:00 140/67 07/31/22 12:30 87 12 149/66 H 96 07/31/22 12:00 92 H 16 156/67 H 92 L 07/31/22 11:30 90 16 154/66 H 94 L 07/31/22 11:00 89 16 152/61 H 95 07/31/22 10:30 91 H 143/70 H 97 07/31/22 10:00 90 154/63 H 97 07/31/22 09:31 118 H 18 177/106 H 99 07/31/22 09:00 97 H 18 150/66 H 98 Intake and Output 07/31/22 08/01/22 08/01/22 19:59 03:59 11:59 Intake Total 0 / 1280 1160 / 1280 120 / 1280 Output Total 0 / 0 0 / 0 0 / 0 Balance 0 / 1280 1160 / 1280 120 / 1280 Intake: Intake, Oral Amount 0 / 120 120 / 120 Intake, Total IV Amount 1160 / 1160 0.9 % Sodium Chloride 1000ML 1, 1160 / 1160 000 ml @ 100 mls/hr IV .Q10H [facility] Rx#:[id number] Output: Output, Urine Amount 0 / 0 0 / 0 0 / 0 Other: Number of Unmeasured Voids 1 1 1 Weight 125 lb 7 oz 131 lb 2 oz Patient Weight 08/01/22 11:59 Weight 131 lb 2 oz Laboratory Results - last 24 hr 07/31/22 08:30: WBC 17.4 H D, RBC 4.50, Hgb 14.0, Hct 43.3, MCV 96.4, MCH 31.2, MCHC 32.4, RDW 13.6, Plt Count 441 H, MPV 8.5, Neut % (Auto) 82.9 H, Lymph % (Auto) 9.5 L, [place] % (Auto) 6.3, Eos % (Auto) 0.8, Baso % (Auto) 0.5, Neut # (Auto) 14.4 H, Lymph # (Auto) 1.7, [place] # (Auto) 1.1 H, Eos # (Auto) 0.1, Baso # (Auto) 0.1, Total Counted 100, Neutrophils % (Manual) 79 H, Lymphocytes % (Manual) 15, Monocytes % (Manual) 5, Eosinophils % (Manual) 1, Platelet Estimate Slight increase, RBC Morphology Normal 07/31/22 08:30: Sodium 137, Potassium 3.8, Chloride 104, Carbon Dioxide 26, Anion Gap 10.8, BUN 15, Creatinine 1.40 H, Estimated Creat Clear 26, Estimated GFR 36 L, Est GFR ( Amer) 43 L, Glucose 156 H, Calcium 10.1, Total Bilirubin 0.3, AST 23, ALT 18, Alkaline Phosphatase 81, Troponin I < 0.01, Total Protein 6.4, Albumin 4.1, Globulin 2.3, Albumin/Globulin Ratio 1.8, Lipase 126 07/31/22 10:38: Lactate 1.8 07/31/22 10:38: Troponin I < 0.01 07/31/22 10:45: SARS-CoV-2 (PCR) Not detected, Influenza A Untype (PCR) Not detected, Influenza Type B (PCR) Not detected 07/31/22 10:55: Urine Color Yellow, Urine Appearance Clear, Urine pH 6.0, Ur Specific [place] <= 1.005, Urine Protein Negative, Urine Glucose (UA) Negative, Urine Ketones Negative, Urine Blood Trace-i, Urine Nitrate Negative, Urine Bilirubin Negative, Urine Urobilinogen 0.2, Ur Leukocyte Esterase Negative, Urine RBC Occasional, Urine WBC None, Ur Squamous Epith Cells Occasional, Urine Bacteria Trace 07/31/22 14:52: Troponin I < 0.01 I & O for Labs for Last 24 Hours: Intake & Output 04/07/30/22 07/31/22 08/01/22 11:59 11:59 11:59 11:59 Intake Total 1280 / 1280 Output Total 0 / 0 Balance 1280 / 1280 Weight 123 lb 131 lb 2 oz Comment:: Alert, pleasant. Lungs clear, heart rate regular rate abdomen soft, very minimal subxiphoid tenderness. No edema or clubbing. Assessment and Plan *Assessment and plan (1) Epigastric pain: Status: Acute Category: Medical Code(s): R10.13 - Epigastric pain (2) Hypertension: Status: Acute Category: Medical Code(s): I10 - Essential (primary) hypertension (3) Anemia: Status: Acute Category: Medical Code(s): D64.9 - Anemia, unspecified (4) Myelodysplastic disease: Status: Acute Category: Medical Code(s): C94.6
--- NOTE | 2022-08-01 08:38 | EXP.ACUTE.PN ---
Subjective *Date: 08/01/22 *Time: 08:38 Interval history: Please note patient is n.p.o. for planned procedure and is have not started any home medications. Medical Exam Vital signs and Labs for Last 24 Hours: Vital Signs Temp Pulse Pulse Resp BP BP Pulse Ox 08/01/22 07:51 98.5 F 86 17 130/56 L 92 L 08/01/22 04:00 99.0 F 98 H 17 145/61 H 91 L 07/31/22 19:51 98.1 F 83 16 145/61 H 95 07/31/22 13:54 97.6 F 78 16 136/58 L 94 L 07/31/22 13:30 147/65 H 07/31/22 13:00 140/67 07/31/22 12:30 87 12 149/66 H 96 07/31/22 12:00 92 H 16 156/67 H 92 L 07/31/22 11:30 90 16 154/66 H 94 L 07/31/22 11:00 89 16 152/61 H 95 07/31/22 10:30 91 H 143/70 H 97 07/31/22 10:00 90 154/63 H 97 07/31/22 09:31 118 H 18 177/106 H 99 07/31/22 09:00 97 H 18 150/66 H 98 Intake and Output 07/31/22 08/01/22 08/01/22 19:59 03:59 11:59 Intake Total 0 / 1280 1160 / 1280 120 / 1280 Output Total 0 / 0 0 / 0 0 / 0 Balance 0 / 1280 1160 / 1280 120 / 1280 Intake: Intake, Oral Amount 0 / 120 120 / 120 Intake, Total IV Amount 1160 / 1160 0.9 % Sodium Chloride 1000ML 1, 1160 / 1160 000 ml @ 100 mls/hr IV .Q10H [facility] Rx#:[id number] Output: Output, Urine Amount 0 / 0 0 / 0 0 / 0 Other: Number of Unmeasured Voids 1 1 1 Weight 125 lb 7 oz 131 lb 2 oz Patient Weight 08/01/22 11:59 Weight 131 lb 2 oz Laboratory Results - last 24 hr 07/31/22 08:30: WBC 17.4 H D, RBC 4.50, Hgb 14.0, Hct 43.3, MCV 96.4, MCH 31.2, MCHC 32.4, RDW 13.6, Plt Count 441 H, MPV 8.5, Neut % (Auto) 82.9 H, Lymph % (Auto) 9.5 L, [place] % (Auto) 6.3, Eos % (Auto) 0.8, Baso % (Auto) 0.5, Neut # (Auto) 14.4 H, Lymph # (Auto) 1.7, [place] # (Auto) 1.1 H, Eos # (Auto) 0.1, Baso # (Auto) 0.1, Total Counted 100, Neutrophils % (Manual) 79 H, Lymphocytes % (Manual) 15, Monocytes % (Manual) 5, Eosinophils % (Manual) 1, Platelet Estimate Slight increase, RBC Morphology Normal 07/31/22 08:30: Sodium 137, Potassium 3.8, Chloride 104, Carbon Dioxide 26, Anion Gap 10.8, BUN 15, Creatinine 1.40 H, Estimated Creat Clear 26, Estimated GFR 36 L, Est GFR ( Amer) 43 L, Glucose 156 H, Calcium 10.1, Total Bilirubin 0.3, AST 23, ALT 18, Alkaline Phosphatase 81, Troponin I < 0.01, Total Protein 6.4, Albumin 4.1, Globulin 2.3, Albumin/Globulin Ratio 1.8, Lipase 126 07/31/22 10:38: Lactate 1.8 07/31/22 10:38: Troponin I < 0.01 07/31/22 10:45: SARS-CoV-2 (PCR) Not detected, Influenza A Untype (PCR) Not detected, Influenza Type B (PCR) Not detected 07/31/22 10:55: Urine Color Yellow, Urine Appearance Clear, Urine pH 6.0, Ur Specific [place] <= 1.005, Urine Protein Negative, Urine Glucose (UA) Negative, Urine Ketones Negative, Urine Blood Trace-i, Urine Nitrate Negative, Urine Bilirubin Negative, Urine Urobilinogen 0.2, Ur Leukocyte Esterase Negative, Urine RBC Occasional, Urine WBC None, Ur Squamous Epith Cells Occasional, Urine Bacteria Trace 07/31/22 14:52: Troponin I < 0.01 I & O for Labs for Last 24 Hours: Intake & Output 07/29/22 07/30/22 07/31/22 08/01/22 11:59 11:59 11:59 11:59 Intake Total 1280 / 1280 Output Total 0 / 0 Balance 1280 / 1280 Weight 123 lb 131 lb 2 oz
--- NOTE | 2022-08-01 11:28 | PC.NURSE ---
pt transported to pre op via stretcher.
--- NOTE | 2022-08-01 12:06 | P.PN_ITS ---
[facility] Disclaimer: The information contained in this section may have been updated after the patient was seen, as this information can be updated by other users. Medical History (Updated 08/01/22 @ 08:36 by Jovany Mark MD) GERD (gastroesophageal reflux disease) HLD (hyperlipidemia) Hypothyroidism Surgical History History of History of cholecystectomy History of hysterectomy Family History Father Cancer Social History (Updated 07/31/22 @ 14:23 by Aimee Montano, FRANCI) Smoking Status: Never smoker alcohol intake: never substance use type: denies use current occupational status: retired Travel in the last 8 weeks: None household members: none housing: apartment [facility] Anesthesia Checklist Patient Identification Patient Identification: Arm Band Structural Data Admitted From: Inpatient Planned Operative Procedure/s: EGD Consent for Planned Operative Procedure(s) Verified: Yes Verified Documents: Surgical Consent and History and Physical NPO Status Verified Time NPO: 00:00 Additional verifications Anesthesia Reactions: No Airway Assessment C-Spine Mobility Assessed: Yes TMJ Mobility Assessed: Yes Dentition: Edentulous Neurological Assessment Level of Consciousness: Awake and Alert Anesthesia Plan Anesthesia Risk discussed: Yes Anesthesia Plan: Verified ASA Class: II Anesthesia Type: MAC
--- NOTE | 2022-08-01 12:59 | HMH.SCOPE ---
Procedure: Date: 08/01/22 Patient Date of :: 1940 Procedure Performed:: Esophagogastroduodenoscopy with biopsies using cold biopsy forceps and hot snare. Indications:: Patient is an 82-year-old female with history of myelodysplastic syndrome. She was admitted after presentation to the emergency department with symptoms described as substernal pain and spasms with some associated vomiting. She had an abnormal CT scan. Surgical consultation was obtained for endoscopy. Performing Provider:: Mo Caldwell MD Referring Provider:: Jovany Mark MD Sedation:: MAC sedation Procedure:: Patient was taken to endoscopy procedure room. She was positioned in lateral decubitus position. Adequate intravenous sedation was achieved with anesthesia titration of propofol. Olympus endoscope was inserted via the oropharynx. Esophagus was cannulated. There was some minor cricopharyngeal spasm. Proximal esophagus revealed evidence of presbyesophagus consistent with some minor esophageal dysmotility. At approximately 25 cm there was encountered moderate to moderately severe erosive esophagitis which was noted between 25 and 30 cm. This could be consistent with candidal esophagitis as well. Gastroesophageal junction was encountered at 30 cm. Stomach was cannulated. There is a moderate hiatal hernia. Most notable within the gastric lumen were polypoid exudative diffuse masslike lesions in the proximal stomach in the fundus. This is of an uncertain etiology. In the antrum there was evidence of moderate nonerosive gastritis. Pylorus was traversed. Duodenum appeared unremarkable. Gastric antral mucosal biopsies were obtained. Biopsies were obtained in the fundus of the exudative polypoid type lesions. It was felt that this may be potentially nondiagnostic and therefore larger biopsies were obtained using the hot snare. Endoscope was withdrawn with the specimen. It was then reinserted and additional biopsies were obtained in a similar fashion. A couple biopsies using cold biopsy forceps were obtained of the distal esophagus. Endoscope was reinserted and the stomach was desufflated and the endoscope was withdrawn. Findings:: Minor cricopharyngeal spasm Presbyesophagus consistent with some esophageal dysmotility Exudative erosions in the esophagus between 25 and 30 cm. Possibly erosive esophagitis versus candidal esophagitis Gastroesophageal junction at 30 cm Moderate hiatal hernia Polypoid erosive exudative lesions diffusely in the fundus and cardia, inflammatory versus neoplastic Recommendations:: Additional treatment pending pathology Complications:: None immediate Estimated blood obtained (mL): 3
--- NOTE | 2022-08-01 15:54 | PC.NURSE ---
A&OX4. RESPIRATIONS REGULAR AND UNLABORED. LUNG SOUNDS CLEAR THROUGHOUT. NO COUGH NOTED. PT ON RA TOLERATING WELL. HEART RATE REGULAR. +2 PULSES NOTED THROUGHOUT. NO EDEMA NOTED. ABDOMEN SOFT AND NONTENDER. ACTIVE BOWEL SOUNDS HEARD THROUGHOUT. NO BM THUS FAR. PT AMBULATES TO RESTROOM INDEPENDENTLY WITH STEADY GAIT NOTED. NO PAIN REPORTED THUS FAR. NS INFUSING AT 100ML/HR. HAND TECHNICAL SUPERVISOR EQUAL. IV INFILTRATED AT BEGINNING OF SHIFT. NEW IV INSERTED AND HAS BEEN GOOD THUS FAR. FAMILY HAS REMAINED AT BEDSIDE THROUGHOUT SHIFT. PT HAD EGD THIS AM AND TOLERATED WELL. TOLERATING CLEAR LIQUID DIET WELL AFTER PROCEDURE. NO QUESTIONS OR CONCERNS VOICED FROM FAMILY OR PT THUS FAR. BED IN LOWEST POSITION. CALL LIGHT WITHIN REACH. WILL CONTINUE TO MONITOR.
--- NOTE | 2022-08-01 16:24 | EXP.DC.SUM ---
General Admission date:: 07/31/22 Discharge date: 08/01/22 HPI HPI HPI: Patient is a 82-year-old female from [place] with history of hypertension, hyperlipidemia, anemia requiring iron transfusion, history of myelodysplastic syndrome. She presented to the emergency department early yesterday afternoon on 07/31/2022 with epigastric pain with vomiting. In the emergency department she was given IV fluid bolus, H2 saqib, proton pump inhibitor, GI cocktail. She was noted to have a hemoglobin of 14. Patient underwent CT scan of the abdomen and pelvis which revealed moderate hiatal hernia with marked wall edema, worse since previous. Persistent lower mediastinal mild adenopathy, may be reactive or neoplastic. Fluid-filled small bowel loops and distal colon wall thickening, may represent enteritis/colitis. Finding is worse than previous. Surgical consultation was obtained for possible EGD. She describes her symptoms as mainly substernal spasms . She had been seen in the emergency department 48 hours prior with complaints of severe left-sided rib/flank pain for a week or so. At that time she had undergone CT of the chest to rule out pulmonary embolism which revealed no acute findings . She also underwent a CT scan of the abdomen pelvis at that time which revealed some chronic findings including nephrolithiasis, small left renal cyst, mild bilateral pelvocaliectasis, hiatal hernia, diverticulosis, mildly dilated intra and extrahepatic bile ducts. Patient has previously undergone cholecystectomy. Patient has undergone multiple endoscopic procedures. She had pain endoscopy in [address] Rasheed performed EGD 2014. In 2017 Dr. Dee had performed EGD at which time she had 2 large gastric polyps, 6 cm hiatal hernia, presbyesophagus. Couple weeks later he had performed colonoscopy and she had a 15 mm ascending colon polyp and diverticulosis. She has not had subsequent endoscopic investigation. Hospital Course Hospital Course Hospital Course: Patient was admitted. Pain control was achieved with Dilaudid. She felt better after some liquids. Continue to have some epigastric pain. Abnormal CT scan was noted of her distal esophagus. EGD was done by Dr. Caldwell-very much appreciate input. Moderately severe erosive esophagitis and features consistent with possible candidal esophagitis were noted. Patient tolerated the procedure well. Biopsies were taken. After the procedure patient woke up well, tolerated liquids well and wished to be discharged home. Plan will be to discharge home with Diflucan therapy, sucralfate for her erosive esophagitis and continued PPI therapy. I will see her in 48 hours. Exam Data for Last 24 hours Vital signs and Labs for Last 24 Hours: Temp Pulse Resp BP Pulse Ox 98.3 F 90 18 125/57 L 93 L 08/01/22 16:05 08/01/22 16:05 08/01/22 16:05 08/01/22 16:05 08/01/22 16:05 I & O for Last 24 hours: Intake & Output 07/30/22 07/31/22 08/01/22 08/02/22 11:59 11:59 11:59 11:59 Intake Total 1280 / 1280 Output Total 0 / 0 0 / 0 Balance 1280 / 1280 0 / 0 Weight 123 lb 131 lb 2 oz Constitutional Constitutional: no acute distress *Routine HEENT Exam Head: Present normocephalic Eye: Present EOMI and PERRL ENT: Present mucous membranes moist *Routine Neck Exam Neck: Present supple; Absent lymphadenopathy *Routine Respiratory Exam Respiratory: Present CTA bilaterally *Routine Cardiovascular Exam Cardiovascular: Present RRR *Routine Abdominal Exam Abdominal: Present soft and normoactive bowel sounds; Absent tenderness *Routine Extremities Exam Extremities: Absent cyanosis, clubbing or edema *Routine Skin Exam Skin: Present warm; Absent rash *Routine Neurological Exam Neurological: Present alert and oriented X3 DS: Diagnosis Discharge Diagnosis (1) Epigastric pain: Status: Acute Meds Home Medications and Allergies Home Medications Medication Instructio
--- NOTE | 2022-08-02 14:03 | CARE MANAGER ---
Spoke with patient for post-discharge phone interview, no issues noted.
== END 2022-08-01 16:54 | disposition home or self-care (01) ==
LOC: ER 13:10 → 2ND 13:51
PROVIDERS: Surgery; Admitting Provider Internal Medicine Adolescent Medicine; Emergency Provider Emergency Medicine; PCP Internal Medicine Adolescent Medicine; Visit Provider Internal Medicine Adolescent Medicine
PROC: 0DJ08ZZ Inspection of Upper Intestinal Tract, Via Natural or Artificial Opening Endoscopic (ICD-10-PCS; CPT 43235; principal; 2022-08-01 12:00)
DX: R10.13 Epigastric pain (principal); D64.9 Anemia, unspecified; N18.9 Chronic kidney disease, unspecified; E03.9 Hypothyroidism, unspecified; Z79.899 Other long term (current) drug therapy; Z79.890 Hormone replacement therapy; I12.9 Hypertensive chronic kidney disease with stage 1 through stage 4 chronic kidney disease, or unspecified chronic kidney disease; D46.9 Myelodysplastic syndrome, unspecified; Z20.822 Contact with and (suspected) exposure to COVID-19; K31.7 Polyp of stomach and duodenum; K44.9 Diaphragmatic hernia without obstruction or gangrene; K22.4 Dyskinesia of esophagus
CPT/HCPCS: 43239; 43251; G0378; 36415; 71045; 74177; 80053; 81001; 83605; 83690; 84484; 85007; 85025; 88305; 88342; 93005; 99285; C9803; J2405; Q9967; U0003; U0005

== ENCOUNTER → 2022-08-03 11:23 | Outpatient (CLI) | payer MEDICARE, OTHER, SELFPAY ==
[2022-08-03 11:45] LABS: Basophils % 0.4 % (0.1-2.0); Eosinophils # 0.2 K/mm3 (0.0-0.4); Eosinophils % 2.6 % (0.1-12.0); Hemoglobin 13.2 g/dL (12.2-16.2); Lymphocytes # 1.2 K/mm3 (0.7-4.5); Lymphocytes % 14.6 % (10-50); Mean Corpuscular HGB Conc 32.1 g/dL (31.8-35.4); Mean Corpuscular Hemoglobin 31.1 pg (27.0-31.2); Mean Corpuscular Volume 96.8 fl (81-99); Monocytes # 0.6 K/mm3 (0.1-1.0); Monocytes % 7.1 % (1.7-9.3); Neutrophils % 75.3 % (37.0-80.0); Platelet Count 335 K/mm3 (142-424); Red Blood Count 4.24 M/mm3 (4.20-5.40); Red Cell Distribution Width 13.7 % (11.5-17.5)
[2022-08-03 12:25] LABS: Chloride 102 mmol/L (98-107); Potassium 3.7 mmoL/L (3.5-5.1); Sodium 138 mmol/L (136-145)
[2022-08-03 12:27] LABS: Alanine Aminotransferase 20 U/L (12-78); Aspartate Amino Transferase 30 U/L (14-36); Blood Urea Nitrogen 11 mg/dl (7-17); Estimated Glomerular Filt Rate 36 ml/min (>60); GFR (African American) 43 ML/MIN (>60)
[2022-08-03 12:28] LABS: Albumin Level 3.7 g/dl (3.5-5.0); Albumin/Globulin Ratio 1.8 (1.1-1.8); Alkaline Phosphatase 81 U/L (38-126); Anion Gap 10.7 mEq/L (5-15); Bilirubin,Total 0.7 mg/dl (0.2-1.3); Calcium 8.7 mg/dl (8.4-10.2); Carbon Dioxide 29 mmol/L (22.0-30.0); Globulin 2.1 g/dL (1.3-3.2); Glucose 106 mg/dl (74-100); Iron 39 ug/dL (37-170); Total Protein,Serum 5.8 g/dl (6.3-8.2)
[2022-08-03 12:37] LABS: Total Iron Binding Capacity 208 ug/dL (265-497)
[2022-08-03 13:03] LABS: Ferritin 103 ng/ml (11.1-264)
== END ==
PROVIDERS: PCP Nurse Practitioner Family; Visit Provider Nurse Practitioner Family
DX: K29.00 Acute gastritis without bleeding (principal); E61.1 Iron deficiency
CPT/HCPCS: 36415; 80053; 82728; 83540; 83550; 85025

== ENCOUNTER → 2023-02-05 15:37 | Outpatient (CLI) | payer MEDICARE, OTHER, SELFPAY ==
[2023-02-05 15:48] LABS: Microscopic, Urine URINE MICROSCOPIC (MICROSCOPIC)
[2023-02-05 16:56] LABS: Hemoglobin 14.1 g/dL (12.2-16.2); Mean Corpuscular HGB Conc 33.7 g/dL (31.8-35.4); Mean Corpuscular Hemoglobin 34.2 pg (27.0-31.2); Mean Corpuscular Volume 101.6 fl (81-99); Platelet Count 351 K/mm3 (142-424); Red Blood Count 4.13 M/mm3 (4.20-5.40); Red Cell Distribution Width 13.6 % (11.5-17.5); White Blood Count 5.5 K/mm3 (4.8-10.8)
[2023-02-05 17:09] LABS: Appearance,Urine CLEAR (Clear); Bilirubin,Urine Negative (Negative); Blood, Urine TRACE-I (Negative); Color,Urine YELLOW (Yellow); Glucose,Urine (UA) Negative (Negative); Ketones,Urine Negative (Negative); Leukocyte Esterase,Urine Negative (Negative); Nitrate,Urine Negative (Negative); Protein,Urine Negative (Negative); Specific Gravity, Urine 1.025 (1.005-1.030); Urobilinogen,Urine 0.2 EU/dl (0.2)
[2023-02-05 17:14] LABS: Total Protein,Urine Random < 5.0 mg/dL (0.0-12.0)
[2023-02-05 17:15] LABS: Creatinine,Urine Random 142 mg/dL (Not Estab.)
[2023-02-05 17:16] LABS: RBC,Urine Occasional #/hpf (0-3); Squamous Epithelial Cell,Urine Occasional #/hpf (0-5)
[2023-02-05 18:11] LABS: Anion Gap 14.8 mEq/L (5-15); Blood Urea Nitrogen 19 mg/dl (7-17); Calcium 9.2 mg/dl (8.4-10.2); Carbon Dioxide 24 mmol/L (22.0-30.0); Chloride 104 mmol/L (98-107); Estimated Glomerular Filt Rate 33 ml/min (>60); GFR (African American) 40 ML/MIN (>60); Glucose 100 mg/dl (74-100); Phosphorous 4.1 mg/dl (2.5-4.5); Potassium 4.8 mmoL/L (3.5-5.1); Sodium 138 mmol/L (136-145)
[2023-02-05 18:22] LABS: Intact Parathyroid Hormone 44.7 pg/mL (7.5-53.5)
[2023-02-05 18:27] LABS: 25-OH Vitamin D, Total 36.3 ng/mL (30-100)
== END ==
PROVIDERS: PCP Internal Medicine Adolescent Medicine; Visit Provider Internal Medicine Nephrology
DX: N18.32 Chronic kidney disease, stage 3b (principal); E55.9 Vitamin D deficiency, unspecified; Z68.24 Body mass index [BMI] 24.0-24.9, adult
CPT/HCPCS: 36415; 80069; 81001; 82306; 82570; 83970; 84155; 85014; 85018; 85048; 85049

== ENCOUNTER → 2023-02-13 12:35 | Outpatient (POV) | payer MEDICARE, OTHER, SELFPAY | PROVIDERS: Visit Provider Internal Medicine Nephrology | DX: Z00.00 Encounter for general adult medical examination without abnormal findings (principal) ==

== ENCOUNTER 2023-03-18 17:25 | Outpatient (CLI) | payer MEDICARE, OTHER, SELFPAY ==
[2023-03-18 17:25] VITALS: BP 168/71; PULSE 83; RESP 18; O2SAT 99
[2023-03-18 17:55] VITALS: BP 143/58; PULSE 73; RESP 16; TEMP 36.7; O2SAT 97
[2023-03-18 17:57] VITALS: BMI 24.0
--- NOTE | 2023-03-18 18:25 | PC.NURSE ---
Pt sent from [facility] for outpt IV bolus of 500ml NS. 2og PIV inserted into upper right basilic with + blood return. NS bolus started per JUN. Pt tolerated infusion well. PIV removed post infusion. VSS. Pt is to follow up with PCP tomorrow after she has her labs drawn.
== END 2023-03-18 18:34 | disposition home or self-care (01) ==
PROVIDERS: PCP Internal Medicine Adolescent Medicine; Visit Provider Internal Medicine Adolescent Medicine
DX: D50.9 Iron deficiency anemia, unspecified (principal)
CPT/HCPCS: 96365

== ENCOUNTER 2024-03-29 10:07 | Outpatient (CLI) | payer MEDICARE, OTHER, SELFPAY ==
[2024-03-29 10:20] LABS: Microscopic, Urine URINE MICROSCOPIC (MICROSCOPIC)
[2024-03-29 10:43] LABS: Hematocrit 39.2 % (37.0-47.0); Mean Corpuscular HGB Conc 33.2 g/dL (31.8-35.4); Mean Corpuscular Hemoglobin 30.5 pg (27.0-31.2); Mean Corpuscular Volume 91.9 fl (81-99); Platelet Count 264 K/mm3 (142-424); Red Blood Count 4.27 M/mm3 (4.20-5.40); Red Cell Distribution Width 15.1 % (11.5-17.5); White Blood Count 5.1 K/mm3 (4.8-10.8)
[2024-03-29 11:23] LABS: Appearance,Urine CLEAR (Clear); Bilirubin,Urine Negative (Negative); Blood, Urine TRACE-I (Negative); Color,Urine YELLOW (Yellow); Glucose,Urine (UA) Negative (Negative); Ketones,Urine Negative (Negative); Leukocyte Esterase,Urine Negative (Negative); Nitrate,Urine Negative (Negative); Protein,Urine Negative (Negative); Specific Gravity, Urine 1.025 (1.005-1.030); Urobilinogen,Urine 0.2 EU/dl (0.2)
[2024-03-29 11:30] LABS: Creatinine,Urine Random 218 mg/dL (Not Estab.)
[2024-03-29 12:00] LABS: Bacteria,Urine Trace /lpf
[2024-03-29 14:33] LABS: Albumin Level 3.9 g/dl (3.5-5.0); Chloride 108 mmol/L (98-107); Potassium 4.2 mmoL/L (3.5-5.1); Sodium 134 mmol/L (136-145)
[2024-03-29 14:36] LABS: Anion Gap 7.2 mEq/L (5-15); Blood Urea Nitrogen 15 mg/dl (7-17); Calcium 9.1 mg/dl (8.4-10.2); Carbon Dioxide 23 mmol/L (22.0-30.0); Estimated Glomerular Filt Rate 36 ml/min (>60); GFR (African American) 43 ML/MIN (>60); Glucose 89 mg/dl (74-100); Phosphorous 3.4 mg/dl (2.5-4.5)
[2024-03-29 16:13] LABS: Intact Parathyroid Hormone 74.5 pg/mL (7.5-53.5)
[2024-03-29 16:54] LABS: 25-OH Vitamin D, Total 46.9 ng/mL (30-100)
== END 2024-03-29 23:59 | disposition home or self-care (01) ==
LOC: LAB 10:09
PROVIDERS: PCP Internal Medicine Adolescent Medicine; Visit Provider Student in an Organized Health Care Education/Training Program
DX: N18.32 Chronic kidney disease, stage 3b (principal); E55.9 Vitamin D deficiency, unspecified
CPT/HCPCS: 36415; 80069; 81001; 82306; 82570; 83970; 84156; 85027

== ENCOUNTER 2024-05-30 17:11 | Emergency (ER) | payer MEDICARE, OTHER, SELFPAY ==
--- NOTE | 2024-05-30 17:15 | XR_ITS ---
PROCEDURE INFORMATION: Exam: XR Chest Exam date and time: 05/30/2024 6:18 PM Age: 83 years old Clinical indication: Shortness of breath; Additional info: Cp SOA TECHNIQUE: Imaging protocol: Radiologic exam of the chest. Views: 1 view. COMPARISON: CT ANGIO CHEST 05/30/2024 6:13 PM FINDINGS: Lungs: Unremarkable. No consolidation. Pleural spaces: Unremarkable. No pleural effusion. No pneumothorax. Heart/Mediastinum: Unremarkable. No cardiomegaly. Bones/joints: Unremarkable. IMPRESSION: No acute findings.
--- NOTE | 2024-05-30 17:15 | ECG_ITS ---
APPROVED REPORT Exam: Resting ECG HR:98 bpm ECG Measurements Heart Rate 98 AXES TX 157 P 81 QRSd 87 QRS 75 QT 319 T 64 QTc 374 Conclusion SINUS RHYTHM NORMAL ECG UNCONFIRMED REPORT Electronically signed by : DEANNA HEDRICK, 06/04/2024 00:02:51
[2024-05-30 17:18] VITALS: BP 186/83; PULSE 85; RESP 12; TEMP 37; O2SAT 100; BMI 24.6
--- NOTE | 2024-05-30 17:18 | [facility].EDCP ---
Discharge Plan Disposition Patient Disposition: Home, Self-Care Condition: Good Prescriptions Prescriptions: New alum-mag hydroxide-simeth [Maalox Advanced] 200-200-20 mg/5 mL suspension 5 ml PO Q3H PRN (Reason: dyspepsia) 7 Days Qty: 100 0RF No Action cyanocobalamin (vitamin B-12) 2,500 mcg tablet 2,500 mcg PO DAILY cholecalciferol (vitamin D3) [Vitamin D3] 50 mcg (2,000 unit) capsule 50 mcg PO DAILY folic acid 400 mcg tablet 0.4 mg PO DAILY biotin 1,000 mcg tablet,chewable 1,000 mcg PO DAILY zolpidem 5 mg tablet 5 mg PO HSP PRN (Reason: Insomnia) omeprazole 20 mg capsule,delayed release(DR/EC) 20 mg PO DAILY prednisone 20 mg tablet See Rx Instructions PO DAILY Qty: 18 0RF Rx Instructions: orally daily; Days 1-3 take 3 tabs (60mg), Days 4-6 take 2 tabs (40mg), Days 7-9 take 1 tab (20mg) amlodipine 5 MG tablet 5 mg PO DAILY estradiol 0.5 MG tablet 0.5 mg PO DAILY Patient Comments: TAKE 1 TABLET BY MOUTH EVERY DAY losartan 100 MG tablet 100 mg PO DAILY levothyroxine 75 mcg Tablet 75 mcg PO DAILY Rx Instructions: DOSE JUST REDUCED FROM 88MCG TO 75 MCG 1 WEEK AGO pantoprazole 40 mg tablet,delayed release (DR/EC) 40 mg PO BID 30 Days Qty: 60 0RF Referrals Follow up/Referrals: Provider,Referral, MD [Referring] - See instructions Activity Restrictions/Add. Instructions Additional Instructions/Restrictions: Please follow-up with your PCP within 7 days. Please return to the ED for any worsening of condition. Please take your medication as prescribed. Clinical Impressions Clinical Impression: Chronic GERD Instructions Patient Instructions: DI for Atypical Chest Pain Print Language Print Language: Maltese Discharge ED Provider: Deyvi Naqvi HPI <Tia Cash APRN - Last Filed: 05/30/24 19:17> General Chief Complaint: Chest Pain Stated Complaint: Chest Spasm Time Seen by Provider: 05/30/24 17:15 History of Present Illness HPI narrative: 83-year-old female presents to the ED for complaints of chest spasms and back pain. Patient states the symptoms started last night has not taken any medication prior to arrival Related Data Home Medications ?Medication ?Instructions ?Recorded ?Confirmed amlodipine 5 mg tablet 5 mg PO DAILY Hypertension 09/06/18 11/24/23 estradiol 0.5 mg tablet 0.5 mg PO DAILY HORMONE REPLACEMENT 09/06/18 11/24/23 losartan 100 mg tablet 100 mg PO DAILY Hypertension 09/06/18 11/24/23 biotin 1,000 mcg chewable tablet 1,000 mcg PO DAILY Supplement 12/26/21 11/24/23 cholecalciferol (vitamin D3) 50 50 mcg PO DAILY Supplement 12/26/21 11/24/23 mcg (2,000 unit) capsule (Vitamin D3) cyanocobalamin (vitamin B-12) 2,500 mcg PO DAILY Supplement 12/26/21 11/24/23 2,500 mcg tablet folic acid 400 mcg tablet 0.4 mg PO DAILY Supplement 12/26/21 11/24/23 zolpidem 5 mg tablet 5 mg PO HSP PRN Insomnia 12/26/21 11/24/23 levothyroxine 75 mcg tablet 75 mcg PO DAILY HYPOTHYROIDISM 07/31/22 11/24/23 omeprazole 20 mg capsule,delayed 20 mg PO DAILY GERD 05/16/23 11/24/23 release Previous Rx's ?Medication ?Instructions ?Recorded pantoprazole 40 mg tablet,delayed 40 mg PO BID 30 days #60 tabs 08/01/22 release prednisone 20 mg tablet See Rx Instructions PO DAILY #18 11/24/23 tabs aluminum-mag hydroxide-simethicone 5 ml PO Q3H PRN dyspepsia 7 days 05/30/24 200 mg-200 mg-20 mg/5 mL oral susp #100 mL (Maalox Advanced) Allergies Allergy/AdvReac Type Severity Reaction Status Date / Time cephalexin (From Keflex) Allergy Unknown Verified 11/24/23 14:25 tizanidine (From Zanaflex) Allergy Unknown Verified 11/24/23 14:25 PFS <Tia Cash APRN - Last Filed: 05/30/24 19:17> [facility] Disclaimer: The information contained in this section may have been updated after the patient was seen, as this information can be updated by other users. Medical History (Updated 05/30/24 @ 19:12 by Tia Cash APRN) Chronic renal insufficiency GERD (gastroesophageal reflux disease) HLD (hyperlipidemia) Hypothyroidism Surgical History History of cholecystectomy History of hysterectomy History of Family History Father Cancer Social History Smoking Status: Never smoker alcohol intake: never substance use type: denies use current occupational status: retired Travel in the last 8 weeks: None household members: none housing: apartment Have you lived/traveled outside US in past 30 days?: No Contact w/someone who lives/traveled outside US past 30 days?: No Exposure to someone with infectious disease in past 14 days?: No Do you have a fever (greater than 100.4 F or 38 C)?: No Have you tested positive for COVID-19: No Exposed to someone with COVID-19 in past 14 days?: No Do you have a sore throat?: No Do you have a cough?: No Do you have any weakness?: No Do you have any diarrhea?: No Are you experiencing any unusual bleeding?: No Do you have any muscle aches/pain?: No Do you have any abdominal pain?: No Are you experiencing loss of taste or smell?: No Other Medical History Have you received the Flu Vaccine for this season: No Have you received the Pneumonia Vaccine: No <Tia Cash APRN - Last Filed: 05/30/24 19:17> ROS Obtained: Yes Systems reviewed as appropriate & no additional complaints except as documented Physical Exam <Tia Cash APRN - Last Filed: 05/30/24 19:17> General General appearance: alert and in no apparent distress Head Head exam: atraumatic and normocephalic Eye Eye exam: Present normal appearance and PERRL ENT ENT exam: Present normal exam Neck Neck exam: Present normal inspection Chest Chest inspection: Present normal inspection and symmetric chest wall rise; Absent tenderness Respiratory Respiratory exam: Present normal lung sounds bilaterally Cardiovascular Cardiovascular exam: Present regular rate Abdominal Exam Abdominal exam: Present soft and normal bowel sounds; Absent tenderness Extremities Exam Extremities exam: Present normal inspection and full ROM Back Exam Back exam: Present normal inspection and full ROM Neurological Exam Neurological exam: Present alert and oriented X3 Psychiatric Psychiatric exam: Present normal affect and normal mood Skin Skin exam: Present warm and dry HEART Score <Tia Cash APRN - Last Filed: 05/30/24 19:17> HEART Score HEART Score assessment performed?: Yes History (anamnesis): Slightly suspicious ECG: Non-specific disturbance Age: >65 years Risk factors: 1-2 risk factors Troponin: </= normal limit HEART Score: 4 <Deyvi Naqvi MD - Last Filed: 05/30/24 19:20> HEART Score HEART Score: 4 Critical Care <Tia Cash APRN - Last Filed: 05/30/24 19:17> Critical Care Time Critical Care Time: No Medical Decision Making <Tia Cash APRN - Last Filed: 05/30/24 19:17> Gui Inquiry Pt receiving controlled substance: No Gui was queried for this patient: No Vital Signs Vital Signs: 05/30/24 17:18 05/30/24 17:30 05/30/24 18:00 Temperature 98.6 F Temperature Source Oral Pulse Rate 79 77 Pulse Rate [Left Radial] 85 Respiratory Rate 12 17 15 Blood Pressure 147/67 H 141/62 H Blood Pressure [Right Arm] 186/83 H Blood Pressure Mean [Right Arm] 117 02 Sat by Pulse Oximetry 100 99 98 Oxygen Delivery Method Room Air Room Air Room Air 05/30/24 18:30 Temperature Temperature Source Pulse Rate 91 H Pulse Rate [Left Radial] Respiratory Rate 15 Blood Pressure 148/66 H Blood Pressure [Right Arm] Blood Pressure Mean [Right Arm] 02 Sat by Pulse Oximetry 97 Oxygen Delivery Method Room Air Lab Data Labs: Lab Results 05/30/24 17:16: WBC 11.4 H, RBC 4.00 L, Hgb 11.7 L, Hct 36.6 L, MCV 91.5, MCH 29.3, MCHC 32.0, RDW 14.2, Plt Count 337, MPV 10.1, Neut % (Auto) 70.7, Lymph % (Auto) 13.9, Toombs % (Auto) 13.2 H, Eos % (Auto) 1.4, Baso % (Auto) 0.5, Neut # (Auto) 8.1 H, Lymph # (Auto) 1.6, Toombs # (Auto) 1.5 H, Eos # (Auto) 0.2, Baso # (Auto) 0.1, D-Dimer 0.75 H, Sodium 140, Potassium 4.2, Chloride 107, Carbon Dioxide 25, Anion Gap 12.2, BUN 15, Creatinine 1.40 H, Estimated Creat Clear 27, Estimated GFR 36 L, Est GFR ( Amer) 43 L, Glucose 96, Calcium 9.4, Total Bilirubin 0.3, AST 22, ALT 16, Alkaline Phosphatase 72, Troponin I < 0.01, Total Protein 6.3, Albumin 4.1, Globulin 2.2, Albumin/Globulin Ratio 1.9 H 05/30/24 17:16 05/30/24 17:16 Response Orders (Tests/Meds): ED MEDICATIONS Discontinued Medications Generic Name Dose Route Start Last Admin Trade Name Freq PRN Reason Stop Dose Admin Aspirin 324 mg 05/30/24 17:15 05/30/24 17:24 Aspirin 81mg Chewable Tablet PO 05/30/24 17:16 324 mg ONCE ONE Administration Belladonna Alkaloids 60 ml 05/30/24 17:15 05/30/24 17:24 Belladonna Alkaloids 60 Ml Ml PO 05/30/24 17:16 60 ml ONCE ONE Administration Iopamidol 70 ml 05/30/24 18:13 05/30/24 18:14 Iopamidol-370 (76%);100ml Bottle IV 05/30/24 18:14 70 ml ONCE ONE Administration Sodium Chloride 50 ml 05/30/24 18:13 05/30/24 18:14 0.9 % Sodium Chloride 50 Ml Vial IV 05/30/24 18:14 50 ml ONCE ONE Administration Sodium Chloride 10 ml 05/30/24 18:13 05/30/24 18:14 Sodium Chloride 0.9% 10ml Syr (Rad Only) IV 05/30/24 18:14 10 ml ONCE ONE Administration ORDERS Category Date Time Status CTA Chest [CT angio chest - dissection] Stat Cat Scan 05/30/24 18:00 Completed XR chest portable Stat Exams 05/30/24 17:15 Completed Complete Blood Count Auto Diff Stat Lab 05/30/24 17:16 Completed Comprehensive Metabolic Panel Stat Lab 05/30/24 17:16 Completed D-Dimer Stat Lab 05/30/24 17:16 Completed HIV Combo Stat Lab 05/30/24 17:16 Received Hepatitis C Ab Qual. W/ RFX Stat Lab 05/30/24 17:16 Received Troponin I Q3H Lab 05/30/24 20:15 Ordered Troponin I Q3H Lab 05/30/24 23:15 Ordered Troponin I Stat Lab 05/30/24 17:16 Completed MDM Narrative Medical Decision Narrative: In summary, patient is a 83-year-old female PMHx iron deficiency (receives iron transfusions), renal insufficiency, myelodysplastic disease, GERD, hypertension, history of enteritis who presents to the ED for chest spasms and dyspnea. Patient states that her symptoms started during the night, she has not taken any medications prior to arrival other than what is prescribed. Patient states she has experienced this before when her iron is low. Patient recently saw her PCP. Denies any history of [place]. Denies history of stroke. Denies taking any blood thinners or aspirin daily. Denies fever, chills, headache, visual disturbances, abdominal pain, nausea, vomiting, dysuria. Upon initial exam, patient is alert, oriented and cooperative. Patient is hemodynamically stable. Physical exam remarkable for dyspnea. Differential diagnosis includes ACS, dissection, pulmonary embolism, electrolyte abnormality, cardiac arrhythmia, infectious process, deficiency, among others. Initial workup will be conducted with hematologic labs, EKG and imaging. Initial inventions include aspirin administration and GI cocktail. I independently and informally interpreted the chest x-ray is no acute cardiopulmonary finding Initial workup reviewed by me. CBC leukocytosis WBC 11.4 stable H&H. D-dimer 0.75, will proceed with CT scan. CMP unremarkable for any actual abnormalities, creatinine 1.40 which appears to be baseline. First troponin <0.01. Chest CT final read unremarkable for any aneurysm or pulmonary embolism. Upon repeat evaluation, patient had an acceptable resolution of symptoms. She is no longer having chest pain. They were ambulatory in the ED. Able to tolerate p.o. Given this, patient is appropriate for discharge at this time. She remained hemodynamically stable during the ED. She is no longer having chest pain. She will follow-up with her PCP within 1 week. We discussed Maalox administration. We discussed return precautions to the ED. Patient verbalized understanding. <Deyvi Naqvi MD - Last Filed: 05/30/24 19:20> Vital Signs Vital Signs: 05/30/24 17:18 05/30/24 17:30 05/30/24 18:00 Temperature 98.6 F Temperature Source Oral Pulse Rate 79 77 Pulse Rate [Left Radial] 85 Respiratory Rate 12 17 15 Blood Pressure 147/67 H 141/62 H Blood Pressure [Right Arm] 186/83 H Blood Pressure Mean [Right Arm] 117 02 Sat by Pulse Oximetry 100 99 98 Oxygen Delivery Method Room Air Room Air Room Air 05/30/24 18:30 Temperature Temperature Source Pulse Rate 91 H Pulse Rate [Left Radial] Respiratory Rate 15 Blood Pressure 148/66 H Blood Pressure [Right Arm] Blood Pressure Mean [Right Arm] 02 Sat by Pulse Oximetry 97 Oxygen Delivery Method Room Air Lab Data Labs: Lab Results 05/30/24 17:16: WBC 11.4 H, RBC 4.00 L, Hgb 11.7 L, Hct 36.6 L, MCV 91.5, MCH 29.3, MCHC 32.0, RDW 14.2, Plt Count 337, MPV 10.1, Neut % (Auto) 70.7, Lymph % (Auto) 13.9, Toombs % (Auto) 13.2 H, Eos % (Auto) 1.4, Baso % (Auto) 0.5, Neut # (Auto) 8.1 H, Lymph # (Auto) 1.6, Toombs # (Auto) 1.5 H, Eos # (Auto) 0.2, Baso # (Auto) 0.1, D-Dimer 0.75 H, Sodium 140, Potassium 4.2, Chloride 107, Carbon Dioxide 25, Anion Gap 12.2, BUN 15, Creatinine 1.40 H, Estimated Creat Clear 27, Estimated GFR 36 L, Est GFR ( Amer) 43 L, Glucose 96, Calcium 9.4, Total Bilirubin 0.3, AST 22, ALT 16, Alkaline Phosphatase 72, Troponin I < 0.01, Total Protein 6.3, Albumin 4.1, Globulin 2.2, Albumin/Globulin Ratio 1.9 H Response Orders (Tests/Meds): ED MEDICATIONS Discontinued Medications Generic Name Dose Route Start Last Admin Trade Name Freq PRN Reason Stop Dose Admin Aspirin 324 mg 05/30/24 17:15 05/30/24 17:24 Aspirin 81mg Chewable Tablet PO 05/30/24 17:16 324 mg ONCE ONE Administration Belladonna Alkaloids 60 ml 05/30/24 17:15 05/30/24 17:24 Belladonna Alkaloids 60 Ml Ml PO 05/30/24 17:16 60 ml ONCE ONE Administration Iopamidol 70 ml 05/30/24 18:13 05/30/24 18:14 Iopamidol-370 (76%);100ml Bottle IV 05/30/24 18:14 70 ml ONCE ONE Administration Sodium Chloride 50 ml 05/30/24 18:13 05/30/24 18:14 0.9 % Sodium Chloride 50 Ml Vial IV 05/30/24 18:14 50 ml ONCE ONE Administration Sodium Chloride 10 ml 05/30/24 18:13 05/30/24 18:14 Sodium Chloride 0.9% 10ml Syr (Rad Only) IV 05/30/24 18:14 10 ml ONCE ONE Administration ORDERS Category Date Time Status CTA Chest [CT angio chest - dissection] Stat Cat Scan 05/30/24 18:00 Completed XR chest portable Stat Exams 05/30/24 17:15 Completed Complete Blood Count Auto Diff Stat Lab 05/30/24 17:16 Completed Comprehensive Metabolic Panel Stat Lab 05/30/24 17:16 Completed D-Dimer Stat Lab 05/30/24 17:16 Completed HIV Combo Stat Lab 05/30/24 17:16 Received Hepatitis C Ab Qual. W/ RFX Stat Lab 05/30/24 17:16 Received Troponin I Q3H Lab 05/30/24 20:15 Ordered Troponin I Q3H Lab 05/30/24 23:15 Ordered Troponin I Stat Lab 05/30/24 17:16 Completed ECG Data Tracing #1: ECG Narrative: Independently interpreted by me rate is 98, rhythm is regular, axis is normal, no ST elevation in anatomical contiguous leads, QTc 374. MDM Narrative Medical Decision Narrative: In summary, patient is a 83-year-old female PMHx iron deficiency (receives iron transfusions), renal insufficiency, myelodysplastic disease, GERD, hypertension, history of enteritis who presents to the ED for chest spasms and dyspnea. Patient states that her symptoms started during the night, she has not taken any medications prior to arrival other than what is prescribed. Patient states she has experienced this before when her iron is low. Patient recently saw her PCP. Denies any history of [place]. Denies history of stroke. Denies taking any blood thinners or aspirin daily. Denies fever, chills, headache, visual disturbances, abdominal pain, nausea, vomiting, dysuria. Upon initial exam, patient is alert, oriented and cooperative. Patient is hemodynamically stable. Physical exam remarkable for dyspnea. Differential diagnosis includes ACS, dissection, pulmonary embolism, electrolyte abnormality, cardiac arrhythmia, infectious process, deficiency, among others. Initial workup will be conducted with hematologic labs, EKG and imaging. Initial inventions include aspirin administration and GI cocktail. I independently and informally interpreted the chest x-ray is no acute cardiopulmonary finding Initial workup reviewed by me. CBC leukocytosis WBC 11.4 stable H&H. D-dimer 0.75, will proceed with CT scan. CMP unremarkable for any actual abnormalities, creatinine 1.40 which appears to be baseline. First troponin <0.01. Chest CT final read unremarkable for any aneurysm or pulmonary embolism. Upon repeat evaluation, patient had an acceptable resolution of symptoms. She is no longer having chest pain. They were ambulatory in the ED. Able to tolerate p.o. Given this, patient is appropriate for discharge at this time. She remained hemodynamically stable during the ED. She is no longer having chest pain. She will follow-up with her PCP within 1 week. We discussed Maalox administration. We discussed return precautions to the ED. Patient verbalized understanding. I was consulted by the [facility], and we discussed the complexity of the problems being addressed. I approved the treatment and management plan for this patient's care in the emergency department, thus performing a substantive portion of the medical decision making. Deyvi Naqvi MD
[2024-05-30 17:23] LABS: Basophils # 0.1 K/mm3 (0-0.2); Basophils % 0.5 % (0.1-2.0); Eosinophils # 0.2 K/mm3 (0.0-0.4); Eosinophils % 1.4 % (0.1-12.0); Hematocrit 36.6 % (37.0-47.0); Hemoglobin 11.7 g/dL (12.2-16.2); Lymphocytes # 1.6 K/mm3 (0.7-4.5); Lymphocytes % 13.9 % (10-50); Mean Corpuscular Hemoglobin 29.3 pg (27.0-31.2); Mean Corpuscular Volume 91.5 fl (81-99); Mean Platelet Volume 10.1 fl (7.4-10.4); Monocytes # 1.5 K/mm3 (0.1-1.0); Monocytes % 13.2 % (1.7-9.3); Neutrophils # 8.1 K/mm3 (1.8-7.8); Neutrophils % 70.7 % (37.0-80.0); Platelet Count 337 K/mm3 (142-424); Red Cell Distribution Width 14.2 % (11.5-17.5); White Blood Count 11.4 K/mm3 (4.8-10.8)
[2024-05-30] MEDS: ASPIRIN 81MG CHEWABLE TABLET 324 MG PO (17:24)
[2024-05-30] MEDS: BELLADONNA ALKALOIDS 60 ML ML PO (17:24)
[2024-05-30 17:28] LABS: Albumin Level 4.1 g/dl (3.5-5.0); Chloride 107 mmol/L (98-107); Potassium 4.2 mmoL/L (3.5-5.1); Sodium 140 mmol/L (136-145)
[2024-05-30 17:30] VITALS: BP 147/67; PULSE 79; RESP 17; O2SAT 99
[2024-05-30 17:31] LABS: Alanine Aminotransferase 16 U/L (12-78); Albumin/Globulin Ratio 1.9 (1.1-1.8); Alkaline Phosphatase 72 U/L (38-126); Anion Gap 12.2 mEq/L (5-15); Aspartate Amino Transferase 22 U/L (14-36); Bilirubin,Total 0.3 mg/dl (0.2-1.3); Blood Urea Nitrogen 15 mg/dl (7-17); Carbon Dioxide 25 mmol/L (22.0-30.0); Creatinine Clearance Estimated 27 mL/min (50-200); Estimated Glomerular Filt Rate 36 ml/min (>60); GFR (African American) 43 ML/MIN (>60); Globulin 2.2 g/dL (1.3-3.2); Total Protein,Serum 6.3 g/dl (6.3-8.2)
[2024-05-30 17:32] LABS: Calcium 9.4 mg/dl (8.4-10.2); Glucose 96 mg/dl (74-100)
[2024-05-30 17:47] LABS: D-Dimer 0.75 ug/mL (0.0-0.5)
[2024-05-30 17:49] LABS: Troponin I < 0.01 ng/ml (0.00-0.034)
[2024-05-30 18:00] VITALS: BP 141/62; PULSE 77; RESP 15; O2SAT 98
--- NOTE | 2024-05-30 18:00 | CT_ITS ---
PROCEDURE INFORMATION: Exam: CTA Chest With Contrast Exam date and time: 05/30/2024 6:13 PM Age: 83 years old Clinical indication: Shortness of breath; Additional info: Cp SOA TECHNIQUE: Imaging protocol: Computed tomographic angiography of the chest with contrast. Exam focused on the arteries. 3D rendering (Not supervised by radiologist): MIP and/or 3D reconstructed images were created by the technologist. Radiation optimization: All CT scans at this facility use at least one of these dose optimization techniques: automated exposure control; mA and/or kV adjustment per patient size (includes targeted exams where dose is matched to clinical indication); or iterative reconstruction. Contrast material: ISO 370; Contrast volume: 70 ml; Contrast route: INTRAVENOUS (IV); COMPARISON: CT ANGIO CHEST PE PROTOCOL 07/29/2022 7:28 PM FINDINGS: Pulmonary arteries: Normal. No pulmonary emboli. Aorta: There is moderate calcific atherosclerotic disease of the thoracic aorta without aneurysmal dilatation. Lungs: Unremarkable. No consolidation. No masses. Pleural spaces: Unremarkable. No pneumothorax. No pleural effusion. Heart: Unremarkable. No cardiomegaly. No pericardial effusion. Lymph nodes: Unremarkable. No enlarged lymph nodes. Gallbladder and biliary ducts: There are surgical clips within the gallbladder fossa. Stomach: Moderate size hiatal hernia with gastric cardia located at the inferior mediastinum. Bones/joints: Unremarkable. No acute fracture. Soft tissues: Unremarkable. IMPRESSION: No acute findings.
--- NOTE | 2024-05-30 18:08 | PC.NURSE ---
pt is going to ct
[2024-05-30] MEDS: 0.9 % SODIUM CHLORIDE 50 ML VIAL IV (18:14)
[2024-05-30] MEDS: IOPAMIDOL-370 (76%);100ML BOTTLE 70 ML IV (18:14)
[2024-05-30] MEDS: SODIUM CHLORIDE 0.9% 10ML SYR (RAD ONLY) 10 ML IV (18:14)
[2024-05-30 18:30] VITALS: BP 148/66; PULSE 91; RESP 15; O2SAT 97
[2024-05-30 19:19] VITALS: BP 143/62; PULSE 81; RESP 18; TEMP 36.8; O2SAT 98
[2024-05-30 19:59] LABS: HIV Combo NEGATIVE (Negative)
[2024-05-30 20:07] LABS: Hepatitis C Ab Qual. W/ RFX NEGATIVE (Negative)
== END 2024-05-30 19:21 | disposition home or self-care (01) ==
PROVIDERS: Nurse Practitioner; Emergency Provider Emergency Medicine; PCP Internal Medicine Adolescent Medicine
DX: K21.9 Gastro-esophageal reflux disease without esophagitis (principal); R06.00 Dyspnea, unspecified; M62.838 Other muscle spasm; M54.9 Dorsalgia, unspecified
CPT/HCPCS: 71045; 71275; 80053; 84484; 85025; 85378; 86803; 87389; 93005; 99285; Q9967

== ENCOUNTER 2024-06-21 11:39 | Outpatient (CLI) | payer MEDICARE, OTHER, SELFPAY ==
--- NOTE | 2024-06-21 11:42 | XR_ITS ---
FINAL REPORT TECHNIQUE: Chest PA & Lateral CLINICAL HISTORY: possible LLL pneumonia COMPARISON: 07/29/2022 FINDINGS: 2 views of the chest were performed. The heart size is normal. The mediastinum is within normal limits. There is no acute cardiopulmonary process. There are no pleural effusions. There is no pneumothorax. The bony thorax appears intact. IMPRESSION: No acute cardiopulmonary process. Reviewed, Interpreted and Dictated by Stanislaw Sotelo MD Transcribed by Lucie Simpson Authenticated and [facility]
== END 2024-06-21 23:59 | disposition home or self-care (01) ==
LOC: RAD 11:40
PROVIDERS: PCP Internal Medicine Adolescent Medicine; Visit Provider Family Medicine
DX: J18.9 Pneumonia, unspecified organism (principal)
CPT/HCPCS: 71046

== ENCOUNTER 2025-04-11 14:39 | Outpatient (CLI) | payer MEDICARE, OTHER, SELFPAY ==
--- OUTSIDE RECORDS SUMMARY | 2025-04-11 14:46 | XMS_ITS | Clinical Summary ---
[facility] Address [address] [place] [address] Care Team Providers Care Cam Specialist Name Role Phone Thao Rolon INA Primary Care Provider [phone] Social History Tobacco Use Types Packs/Day Years Used Date Smoking Tobacco: Never Assessed Abuse Screen Answer Date Recorded Unsafe at Home or Work/School Not on file Feels Threatened by Someone? Not on file 03/2023 Does Anyone Keep You from Co ntacting Others or Doint Things Outside the Home? Not on file 01/23/2023 Physical Sign of Abuse Present Not on file 1 Housing Stability Answer Date Recorded Current Living Arrangements Not on file 01/12 Potentially Unsafe Housing Conditions Not on ajit e 01/23/2023 Family and Community Support Answer Tray e Recorded Help with Day-to-Day Activities Not on file 01/23/2023 Lonely or Isolated Not on file 01/23/2023 Employment Answer Date Recorded Do you want help finding or keeping work or a ana b? Not on file 01/23/2023 Disabilities Answer Date Recorded Concentrating, Remembering, or Making Decisions Difficulty Not on file 01/23/2023 Doing Errands Independently Difficulty Not on fi le 01/23/2023 Education Answer Date Recorded Help with school or training? Not on file Preferred Language Not on file 01/23/2023 Comments Unknown Sex and Gender Information Value Date Recorded Sex Assigned at Not on file Legal Sex Female 12:00 PM EDT Gender Identity Not on file Sexual Orientation Not on file Plan of Treatment Health Maintenance Due Date Last Done Comments ANNUAL PHYSICAL 1940 DXA SCAN 1938 TDAP/TD VACCINES (1 - Tdap) 1957 Pneumococcal Vaccine 50+ (1 of 1 - PCV) 1988 ZOSTER VACCINE (1 of 2) 1988 RSV Vaccine - Adults (1 - 1-dose 75+ series) 4 INFLUENZA VACCINE 11/12/2024 COVID-19 Vaccine (1 - 2023- season) 2024 Insurance MEDICARE A & [employer] [place] Care Teams Cam Specialist Relationship Specialty Start Date End Date Thao Rolon APRN [address] [place] [address] PCP - General Family Medicine 12/11/18
--- OUTSIDE RECORDS SUMMARY | 2025-04-11 14:46 | XMS_ITS | Data Portability ---
Author Organization [facility] - ESAU Pad[facility] Address [address] [facility] [address] [place] [address] Care Team Providers Care Engineering Associate Name Role Phone LEILA WEN Primary Care Provider SAGRARIO YU Hematology/Oncology [phone] Assessment Encounter Date Assessment Date Assessment LastModified by Organization Details LastModified Time 01/29/2018 01/29/2018 Ms. Watson's iron levels & CBC are normal; her folate is low & she will start a supplement. She will start losartan 50 mg daily for uncontrolled HTN, and will check her blood pressure at home occasionally and call us if it is not in range. I'll see her in 6 months, with labs. She does not wish to schedule mammograms at this time. Her average life expectancy was calculated, using the Social Security database, to be 90 years. sliddle Not available 01/31/2018 16:09:57 07/15/2018 07/15/2018 Ms. Watson has recurrent iron deficiency anemia, with hemoglobin 10.8, ferritin 6; she will get Feraheme today, will continue B12 shots q month, and I will add amlodipine 5 mg daily for her uncontrolled high blood pressure. She has not been getting any regular exercise. I showed her how to track the number of steps she takes daily on her iPhone; she was encouraged to try to get in 10,000 steps a day, 3 days a week. She is to check her blood pressure and to let us know if the systolic continues to run over 130 on amlodipine. I'll see her in 6 months, with labs. sliddle Not available 07/15/2018 17:36:12 Plan of Treatment Reminders Order Date Submit Date Provider Last Modified By Organization Details Last Modified Time Details Appointments None recorded. Lab None recorded. Referral None recorded. Procedures None recorded. Surgeries None recorded. Imaging None recorded. Medication Orders amlodipine 5 mg tablet 2018 019 INTERFACE [facility], [address] [place], [address], 9 11:22:00 losartan 50 mg tablet 2017 018 sliddle [facility], [address] [place], [address], 9 11:06:23 Patient TargetsNo targets recorded. Patient Instructions Encounter Date Encounter Id Patient Instructions Last Modified By Organization Details Last Modified Time 01/29/2018 [id number] high blood pressure: care instructions [email or web address] Not available 01/29/2018 11:33:04 learning about high blood pressure sliddle Not available 01/29/2018 11:33:04 iron deficiency anemia: care instructions sliddle Not available 01/31/2018 16:08:57 07/15/2018 [id number] high blood pressure: care instructions sliddle Not available 07/15/2018 11:18:56 learning about high blood pressure sliddle Not available 07/15/2018 11:18:56 iron deficiency anemia: care instructions sliddle Not available 07/15/2018 11:18:56 Reason for Referral None Reported. Results Created Date Observation Date Name Description Value Unit Range Abnormal Flag Note LastModifiedBy Organization Detail LastModifiedTime 07/31/19 18 07/30/2017 CBC w/ auto diff white blood cells 5.9 K/uL 3.8-10 .8 normal Not Available [facility] [address] [place], [address], 07/30/2017 13:55:19 07/31/19 18 07/30/2017 CBC w/ auto diff red blood cells 4.18 M/uL 3.80-5 .20 normal Not Available [facility] [address] [place], [address], 07/30/2017 13:55:19 07/31/19 18 07/30/2017 CBC w/ auto diff hemoglobin 12.3 g/dL 12.0-1 6.0 normal Not Available [facility] [address] [place] [address], [address], 07/30/2017 13:55:19 07/31/19 18 07/30/2017 CBC w/ auto diff hematocrit 37.3 % 35.0-4 7.0 normal Not Available [facility] [address] [place] [address], [address], 07/30/2017 13:55:19 07/31/19 18 07/30/2017 CBC w/ auto diff MCV 89 fL 80-100 normal Not Available [facility] [address] [place] [address], [address], 07/30/2017 13:55:19 07/31/19 18 07/30/2017 CBC w/ auto diff MCH 29 pg 26-35 normal Not Available [facility] [address] [place] [address], [address], 07/30/2017 13:55:19 07/31/19 18 07/30/2017 CBC w/ auto diff MCHC 33 g/dL 32-36 normal Not Available [facility] [address] [place] [address], [address], 07/30/2017 13:55:19 07/31/19 18 07/30/2017 CBC w/ auto diff RDW 15.1 % 11.0-1 5.0 high Not Available [facility] [address] [place] [address], [address], 07/30/2017 13:55:19 07/31/19 18 07/30/2017 CBC w/ auto diff MPV 8.7 fL 6.2-10 .5 normal Not Available [facility] [address] [place] [address], [address], 07/30/2017 13:55:19 07/31/19 18 07/30/2017 CBC w/ auto diff platelet count 326 K/uL 130-40 0 normal Not Available [facility] [address] [place] [address], [address], 07/30/2017 13:55:19 07/31/19 18 07/30/2017 CBC w/ auto diff neutrophil,a bsolute 4.0 K/uL 1.6-8. 4 normal Not Available [facility] [address] [place] [address], [address], 07/30/2017 13:55:19 07/31/19 18 07/30/2017 CBC w/ auto diff lymphocyte,a bsolute 1.2 K/uL 0.4-5. 1 normal Not Available [facility] [address] [place] [address], [address], 07/30/2017 13:55:19 07/31/19 18 07/30/2017 CBC w/ auto diff monocyte,abs olute 0.5 K/uL 0.0-1. 2 normal Not Available [facility] [address] [place] [address], [address], 07/30/2017 13:55:19 07/31/19 18 07/30/2017 CBC w/ auto diff eosinophil,a bsolute 0.1 K/uL 0.0-0. 8 normal Not Available [facility] [address] [place] [address], [address], 07/30/2017 13:55:19 07/31/19 18 07/30/2017 CBC w/ auto diff basophil,abs olute 0.1 K/uL 0.0-0. 3 normal Not Available [facility] [address] [place] [address], [address], 07/30/2017 13:55:19 07/31/19 18 07/30/2017 CBC w/ auto diff % neutrophils 68.4 % 42.0-7 8.0 normal Not Available [facility] [address] [place] [address], [address], 07/30/2017 13:55:19 07/31/19 18 07/30/2017 CBC w/ auto diff % lymphocytes 19.8 % 11.0-4 7.0 normal Not Available [facility] [address] [place] [address], [address], 07/30/2017 13:55:19 07/31/19 18 07/30/2017 CBC w/ auto diff % monocytes 8.2 % 0.0-11 .0 normal Not Available [facility] [address] [place] [address], [address], 07/30/2017 13:55:19 07/31/19 18 07/30/2017 CBC w/ auto diff % eosinophils 2.2 % 0.0-7. 0 normal Not Available [facility] [address] [place] [address], [address], 07/30/2017 13:55:19 07/31/19 18 07/30/2017 CBC w/ auto diff % basophils 1.4 % 0.0-3. 0 normal Not Available [facility] [address] [place] [address], [address], 07/30/2017 13:55:19 07/31/19 18 07/30/2017 CBC w/ auto diff nucleated red cells 0.0 % 0.0-0. 9 normal Not Available [facility] [address] [place] [address], [address], 07/30/2017 13:55:19 07/31/19 18 07/30/2017 CBC w/ auto diff nucleated RBCs, absolute 0.00 K/uL not estab. normal Not Available [facility] [address] [place] [address], [address], 07/30/2017 13:55:19 07/31/19 18 07/30/2017 emperatriz tin, serum or plasm a ferritin 15.1 NG/mL 13.0-1 50.0 normal Not Available [facility] [address] [place] [address], [address], 07/30/2017 14:27:35 07/31/19 18 07/30/2017 vitam in B12 + folat e, serum or blood folic acid 8.5 NG/mL 4.8-24 .2 normal Not Available [facility] [address] [place] [address], [address], 07/30/2017 14:33:57 07/31/19 18 07/30/2017 vitam in B12 + folat e, serum or blood vitamin B12 219 pg/mL 232-12 45 low Not Available [facility] [address] [place] [address], [address], 07/30/2017 14:33:57 07/31/19 18 07/30/2017 CMP, serum or plasm a glucose 120 mg/dL 74-100 high Not Available [facility] [address] [place] [address], [address], 07/30/2017 14:44:17 07/31/19 18 07/30/2017 CMP, serum or plasm a blood urea nitrogen 10 mg/dL 6-20 normal Not Available [facility] [address] [place] [address], [address], 07/30/2017 14:44:17 07/31/19 18 07/30/2017 CMP, serum or plasm a creatinine 1.28 mg/dL 0.50-0 .95 high Not Available [facility] [address] [place] [address], [address], 07/30/2017 14:44:17 07/31/19 18 07/30/2017 CMP, serum or plasm a BUN/creatini ne ratio 8 (calc ) 10-20 low Not Available [facility] [address] [place] [address], [address], 07/30/2017 14:44:17 07/31/19 18 07/30/2017 CMP, serum or plasm a sodium 142 mmol/ L 136-14 5 normal Not Available [facility] [address] [place] [address], [address], 07/30/2017 14:44:17 07/31/19 18 07/30/2017 CMP, serum or plasm a potassium 4.1 mmol/ L 3.4-5. 0 normal Not Available [facility] [address] [place] [address], [address], 07/30/2017 14:44:17 07/31/19 18 07/30/2017 CMP, serum or plasm a chloride 105 mmol/ L 98-107 normal Not Available [facility] [address] [place] [address], [address], 07/30/2017 14:44:17 07/31/19 18 07/30/2017 CMP, serum or plasm a carbon dioxide 26 mmol/ L 20-32 normal Not Available [facility] [address] [place] [address], [address], 07/30/2017 14:44:07/31/19 18 07/30/2017 CMP, serum or plasm a anion gap 11 (calc ) 7-25 normal Not Available [facility] [address] [place] [address], [address], 07/30/2017 14:44:07/31/19 18 07/30/2017 CMP, serum or plasm a calcium 8.8 mg/dL 8.6-10 .2 normal Not Available [facility] [address] [place] [address], [address], 07/30/2017 14:44:07/31/19 18 07/30/2017 CMP, serum or plasm a total protein 6.1 g/dL 6.4-8. 3 low Not Available [facility] [address] [place] [address], [address], 07/30/2017 14:44:07/31/19 18 07/30/2017 CMP, serum or plasm a albumin 3.8 g/dL 3.5-5. 2 normal Not Available [facility] [address] [place] [address], [address], 07/30/2017 14:44:17 07/31/19 18 07/30/2017 CMP, serum or plasm a globulin 2.3 g/dL_ (calc ) 1.5-4. 5 normal Not Available [facility] [address] [place] [address], [address], 07/30/2017 14:44:17 07/31/19 18 07/30/2017 CMP, serum or plasm a albumin/glob ulin ratio 1.7 (calc ) 1.1-2. 5 normal Not Available [facility] [address] [place] [address], [address], 07/30/2017 14:44:07/31/19 18 07/30/2017 CMP, serum or plasm a bilirubin, total 0.3 mg/dL 0.1-1. 2 normal Not Available [facility] [address] [place] [address], [address], 07/30/2017 14:44:17 07/31/19 18 07/30/2017 CMP, serum or plasm a alkaline phosphatase 88 U/L 35-105 normal Not Available [facility] [address] [place] [address], [address], 07/30/2017 14:44:17 07/31/19 18 07/30/2017 CMP, serum or plasm a AST 12 U/L 0-32 normal Not Available [facility] [address] [place] [address], [address], 07/30/2017 14:44:17 07/31/19 18 07/30/2017 CMP, serum or plasm a ALT 9 U/L 0-33 normal Not Available [facility] [address] [place] [address], [address], 07/30/2017 14:44:07/31/19 18 07/30/2017 CMP, serum or plasm a GFR 46 >= 60 abnormal Not Available [facility] [address] [place] [address], [address], 07/30/2017 14:44:17 07/31/19 18 07/30/2017 CMP, serum or plasm a GFR non- 40 >= 60 abnormal NOT E Calcu latio n for GFR is based on the Natio nal Jonne y Found ation CKD-E PI equat ion and allow s for repor ting GFR value s great er than 60 mL/mi n/1.7 3 m2. This calcu latio n has not been valid ated for patie nts less than 18 yrs., pregn ant women and Hispa nics. Chron ic kidne y disea se is defin ed as kidne y damag e or GFR less than 60 mL/mi n/1.7 3 m2 for 3 month s or longe r. . Not Available [facility] [address] [place] [address], [address], 07/30/2017 14:44:17 07/31/19 18 07/30/2017 iron + total iron- rain ng capac ity (TIBC ), serum iron 37 ug/dL 37-145 normal Not Available [facility] [address] [place] [address], [address], 07/30/2017 14:44:18 07/31/19 18 07/30/2017 iron + total iron- rain ng capac ity (TIBC ), serum total iron binding cap. 276 ug/dL _(srikanth c) 250-45 0 normal Not Available [facility] [address] [place] [address], [address], 07/30/2017 14:44:18 07/31/19 18 07/30/2017 iron + total iron- rain ng capac ity (TIBC ), serum unsat.iron binding cap. 239 ug/dL 112-34 7 normal Not Available [facility] [address] [place] [address], [address], 07/30/2017 14:44:18 07/31/19 18 07/30/2017 iron + total iron- rain ng capac ity (TIBC ), serum % saturation 13 %_(ca lc) 15-50 low Not Available [facility] [address] [place] [address], [address], 07/30/2017 14:44:18 11/03/19 20 11/03/2019 iron + total iron- rain ng capac ity (TIBC ), serum iron 42 ug/dL 37-145 normal Not Available [facility] [address] [place] [address], [address], 11/03/2019 16:14:39 11/03/19 20 11/03/2019 iron + total iron- rain ng capac ity (TIBC ), serum total iron binding cap. 268 ug/dL _(srikanth c) 250-45 0 normal Not Available [facility] [address] [place] [address], [address], 11/03/2019 16:14:39 11/03/19 20 11/03/2019 iron + total iron- rain ng capac ity (TIBC ), serum unsat.iron binding cap. 226 ug/dL 112-34 7 normal Not Available [facility] [address] [place] [address], [address], 11/03/2019 16:14:39 11/03/19 20 11/03/2019 iron + total iron- rain ng capac ity (TIBC ), serum % saturation 16 %_(ca lc) 15-50 normal Not Available [facility] [address] [place] [address], [address], 11/03/2019 16:14:39 11/03/19 20 11/03/2019 emperatriz tin, serum or plasm a ferritin 24.8 NG/mL 13.0-1 50.0 normal Not Available [facility] [address] [place] [address], [address], 11/03/2019 16:02:17 Result Notes None recorded. Problems Name Problem SNOMED Code Status Onset Date Resolution Date Notes Provider Name and Address Organization Details Recorded Time Anemia due to chronic blood loss 722841905 Active 2015 From Automated Load;Provi bill: Sagrario Yu;Stat us: Active Not Available [facility] 7 06:56:08 Perniciou s anemia Active 2015 From Automated Load;Provi bill: Sagrario Yu;Stat us: Active Not Available [facility] 7 06:56:08 Clinical finding Active 2015 Status: Active Not Available [facility] 6 07:36:50 Essential hypertens ion 27925867 Active 2017 SAGRARIO YU MD [address] [place] [address], [address] [facility] 8 11:20:01 Cobalamin deficienc y 963577807 Active 2017 SAGRARIO YU MD [address] [place] [address], [address] [facility] 8 16:08:31 Iron deficienc y anemia 34213410 Active 2017 SAGRARIO YU MD [address] [place] [address], [address] [facility] 8 16:08:46 Problem Notes None recorded. Procedures Surgical History Date Name Laterality Status Provider Name and Address Organization Details Recorded Time 07/24/19 19 Hem/Onc Treatment Encounter completed Shonna Cinnamon [facility] 07/23/2018 11:45:28 07/16/19 19 Hem/Onc Treatment Encounter completed Yady Suárez [facility] 07/15/2018 15:34:18 08/07/19 18 Hem/Onc Treatment Encounter completed Meenu Nails [facility] 08/06/2017 11:18:08 07/31/19 18 Hem/Onc Treatment Encounter completed Shonna Cinnamon [facility] 07/30/2017 17:02:08 01/10/20 17 Hem/Onc Treatment Encounter completed Meg Villareal [facility] 01/09/2017 10:43:52 01/03/20 17 Hem/Onc Treatment Encounter completed Meg Villareal [facility] 01/02/2017 10:18:49 Cholecystectomy completed Balaji Ayalauecarlos-Orti saji [facility] 01/01/2017 10:59:58 Hysterectomy completed Balaji lennon [facility] 01/01/2017 11:00:04 Imaging Results None recorded. Procedure Notes None recorded. Medical Equipment None Reported. Allergies Allergen ID Allergen Name Allergen Category Reaction Reaction Severity Criticality Documentation Date Start Date Code Code System Note Provider Name and Address Organization Details Recorded Time Zanaflex medicatio n other severe Not available 03/07/20162015 89115 6 RxNorm React ion: OTHER ;Gina rity: Sever e; Comme nt: drows iness & slurr ed speec h;Cre ated By: Santos Sparrow brynn Date: 2015 10:16 :13 AM; Not Available [facility] 6 12:27:41 Medications Name Sig Start Date Stop Date Status Note LastModified by Organization Details LastModified Time losartan 50 mg tablet Take 1 tablet every day by oral route. 07/15 completed increase d to 100mg Not Available Not Available Not Available amlodipin e 5 mg tablet Take 1 tablet every day by oral route. 2018 active Not Available Not Available Not Avai lable cyanocoba duncan (vit B-12) 1,000 mcg/mL injection solution Give 1mg SQ monthly 2017 active Not Available Not Available Not Avai lable Synthroid 50 mcg tablet 1 Daily active Frequenc y: daily;Me dication Descript ion: levothyr oxine; Dosage:1 ; Route:or al; refills: 0 Not Available Not Available Not Available omeprazol e 20 mg capsule,d elayed release 1 Daily active Frequenc y: daily;Me dication Descript ion: omeprazo le; Dosage:1 ; Route:or al; refills: 0 Not Available Not Available Not Available estradiol 0.5 mg tablet As needed 01/02 completed Instruct ions: takes 2-3 x wk;Frequ ency: prn;Medi cation Descript ion: estradio l; Dosage:a s directed ; Route:or al; refills: 0; Quantity :30 tablet Not Available Not Available Not Available losartan 100 mg tablet Take 1 tablet every day by oral route. active Not Available Not Available No t Available Ambien 5 mg tablet 1/2 tablet @ Bedtime as needed active Instruct ions: as needed for insomnia ;Frequen cy: hs;Alt Frequenc y: prn;Medi cation Descript ion: zolpidem ; Dosage:1 ; Route:or al; refills: 0; Quantity :30 tablet Not Available Not Available Not Available estradiol active Not Available Not Mayra ilable Not Available Neurontin 01/02 completed Not Available Not Available Not Available Vitals Date Recorded Body height Body mass index (BMI) Body weight Body temperature Heart rate Systolic And Diastolic Provider Name and Address Organization Details Last Updated DateTime 9 154.94 cm 25.4 kg/m2 94503.1 7 g 98.3 [degF] 98 /min 162/69 mm[Hg] [facility] 9 10:33:57 Date Recorded Body height Provider Name an d Address Organization Details Last Updated DateTime 07/15/2018 154.94 cm Yadycarter Suárez [facility] 15:30:34 Date Recorded Body height Body mass index (BMI) Body weight Heart rate Systolic And Diastolic Provider Name and Address Organization Details Last Updated DateTime 07/23/2018 154.94 cm 25.1 kg/m2 96195.79 g 81 /min 161/62 mm[Hg] Shonna Fosteron [facility] 07/23/2018 11:16:48 Date Recorded Body height Body mass index (BMI) Body weight Heart rate Systolic And Diastolic Provider Name and Address Organization Details Last Updated DateTime 08/06/2017 154.94 cm 26.2 kg/m2 35445.62 g 72 /min 180/70 mm[Hg] Meenu Nails [facility] 08/06/2017 11:12:33 Date Recorded Body height Body mass index (BMI) Body weight Body temperature Heart rate Systolic And Diastolic Provider Name and Address Organization Details Last Updated DateTime 8 154.94 cm 26 kg/m2 24595.9 5 g 97.3 [degF] 79 /min 162/74 mm[Hg] [facility] 8 10:23:38 Social History Question Answer Notes LastModified by Organizat ion Details LastModified Time Tobacco Smoking Status Never Smoker Balaji medina [facility] 01/01/2017 10:59:07 Marital Status [email or web address] Informatio n not available 01/01/2017 What Was The Date Of Your Most Recent Tobacco Screening? 07/15/2018 Information n ot available 06/01/2019 Sex: Unknown Functional Status Question Answer Note LastModified by Organization D etails LastModified Time What is your level of alcohol consumption? None [email or web address] Information not available 01/01/2017 What is your occupation? retired [email or web address] Information not available 01/01/2017 Mental Status None recorded. Family History Relationship Description Onset Age of this Age Resolved Age Notes LastModified by Organization Details LastModified Time Father Family history of malignant neoplasm [email or web address] Not available 2016 11:00:31 Mother Family history of malignant neoplasm [email or web address] Not available 2016 11:00:31 Medical History Condition Response Cancer Y Anemia Y Arthritis Y Depression Y Thyroid Disorder Y Blood Transfusion Y Gynecological HistoryNo gynecological history recorded. Obstetrics History GPAL:G 0 P 0 0 0 0 Past Encounters Encounter ID Performer Location Encounter Start Date Encounter Closed Date Diagnosis/Indication Diagnosis SNOMED-CT Code Diagnosis ICD10 Code Diagnosis IMO Codes Diagnosis Note [id number] SAGRARIO YU MD [facility] [address],[facility] [address] [place] [address] 01/01/2017 10:43:28 01/01/2017 12:01:35 Iron deficiency anemia 26176897 D50.9 [id number] RELL NICHOLAS MD [facility] [address],[facility] [address] [place] [address] 01/02/2017 08:54:42 01/07/2017 10:14:00 [id number] SAGRARIO YU MD [facility] [address],[facility] [address] [place] [address] 01/09/2017 09:40:03 01/10/2017 16:22:27 [id number] SAGRARIO YU MD [facility] [address],[facility] [address] [place] [address] 07/30/2017 13:16:34 07/30/2017 16:19:55 Anemia due to chronic blood loss 036964338 D50.0 Pernicious anemia 005274 09 D51.0 [id number] SAGRARIO YU MD [facility] [address] 6 07/30/2017 16:23:19 08/04/2017 17:34:48 [id number] SAGRARIO YU MD [facility] [address],[place] [id number] 08/06/2017 09:40:51 08/08/2017 13:41:22 [id number] SAGRARIO YU MD [facility] [address] [address] 01/29/2018 10:07:45 01/29/2018 11:40:10 Essential hypertension 86193924 I10 Cobalamin deficiency 190 628402 E53.8 Iron defic iency anemia 67429843 D50.9 [id number] SAGRARIO YU MD [facility] [address] 6 07/15/2018 09:52:56 07/15/2018 11:36:17 [id number] SAGRARIO YU MD [facility] [address],[place] [id number] 07/15/2018 09:52:56 07/15/2018 11:36:17 Iron deficiency anemia 32774681 D50.9 Essential hypertension 68593444 I10 Cobalamin deficiency 190 392018 E53.8 [id number] SAGRARIO YU MD [facility] [address] [address] 07/23/2018 10:54:30 07/27/2018 09:24:46 [id number] SAGRARIO YU MD [facility] [address] [employer] [place] [address] 12/11/2018 13:34:20 12/11/2018 15:58:14 [id number] SAGRARIO YU MD [facility] [address] [place] [place] [address] 12/11/2018 16:14:34 12/16/2018 03:46:46 [id number] RELL NICHOLAS MD HEM/ONC SB CLOSED [address] [place] [address] 12/18/2018 09:25:32 01/02/2019 03:46:38 [id number] SAGRARIO YU MD HEM/ONC SB CLOSED [address] [place] [address] 05/17/2019 10:22:07 05/17/2019 11:46:17 [id number] SAGRARIO YU MD HEM/ONC SB CLOSED [address] [place] [address] 11/03/2019 12:58:12 11/03/2019 15:04:21 [id number] SAGRARIO YU MD HEM/ONC SB CLOSED [address] [place] [address] 03/20/2020 13:25:28 03/20/2020 15:02:27 [id number] SAGRARIO YU MD HEM/ONC SB CLOSED [address] [place] [address] 03/20/2020 15:07:32 03/20/2020 16:08:01 [id number] SAGRARIO YU MD HEM/ONC SB CLOSED [address] [place] [address] 03/27/2020 10:25:15 03/27/2020 12:41:30 [id number] SAGRARIO YU MD HEM/ONC SB CLOSED [address] [place] [address] 09/20/2020 11:13:11 09/20/2020 12:59:04 [id number] SAGRARIO YU MD HEM/ONC SB CLOSED [address] [place] [address] 01/08/2021 11:40:31 01/08/2021 13:16:45 [id number] SAGRARIO YU MD HEM/ONC SB CLOSED [address] [place] [address] 01/08/2021 13:10:30 01/08/2021 16:04:27 [id number] SAGRARIO YU MD HEM/ONC SB CLOSED [address] [place] [address] 01/15/2021 11:22:45 01/15/2021 15:56:17 [id number] SAGRARIO YU MD HEM/ONC SB CLOSED [address] [place] [address] 10/25/2021 10:14:48 10/25/2021 11:49:43 [id number] SAGRARIO YU MD HEM/ONC SB CLOSED [address] [place] [address] 10/25/2021 11:46:29 10/25/2021 13:38:57 [id number] RELL NICHOLAS MD HEM/ONC SB CLOSED [address] [place] [address] 11/01/2021 11:07:10 11/01/2021 12:57:45 [id number] SAGRARIO YU MD HEM/ONC SB CLOSED [address] [place] [address] 07/22/2022 09:39:22 07/22/2022 10:48:34 [id number] SAGRARIO YU MD HEM/ONC SB CLOSED [address] [place] [address] 08/07/2022 08:11:05 08/07/2022 09:41:39 [id number] SAGRARIO YU MD HEM/ONC SB CLOSED [address] [place] [address] 08/14/2022 11:16:38 08/14/2022 14:16:09 Health Concerns Section Related Observation LastModified by Organization Detai ls LastModified Time None Recorded Concern Status LastModified by Organization Details LastModified Time None Recorded Advance Directives Directive None Recorded Payers Insurance Date Sequence Insurance Name Policy Number Policy Chavez Covered Member ID Chavez Member ID Guarantor Name 09/03/2024 1 [employer] (MEDICARE REPLACEMENT/ ADVANTAGE - PPO) [id number] Asmita Watson [id number] Asmita Watson 09/03/2024 1 [place] Asmita Watson [id number] Asmita Watson 12/27/2016 1 [employer] (MEDICARE REPLACEMENT/ ADVANTAGE - PPO) Asmita Watson [id number] Asmita Watson 03/08/2020 2 [employer] (INDEMNITY) Asmita Watson [id number] Asmita Watson 01/29/2017 2 [employer] (MEDICARE SUPPLEMENT) Asmita Watson Notes Date Note Type Note Provider Name and Address Organization Details Recorded Time 01/29/2018 text/html Ms. Watson is a pleasant 77 yo lady with recurrent iron deficiency anemia. She gets IV Feraheme about once a year. She had EGD in January [address] Dee, with findings of a moderate hiatal hernia and some large gastric polyps, which were removed and were felt to be the cause of her GI blood loss. She had colonoscopy in February 2017 with findings of tubular adenomas, with repeat colonoscopy recommended in 2 years. She also has history of B12 deficiency, responsive to B12 shots. SAGRARIO YU MD [address] [place] [address], [phone], [facility] 01/31/2018 16:11:27 07/15/2018 text/html Ms. Watson is a pleasant 78 yo lady with recurrent iron deficiency anemia. She gets IV Feraheme about once a year. She had EGD in January [address] Dee, with findings of a moderate hiatal hernia and some large gastric polyps, which were removed and were felt to be the cause of her GI blood loss. She had colonoscopy in February 2017 with findings of tubular adenomas, with repeat colonoscopy recommended in 2 years. She also has history of B12 deficiency, responsive to B12 shots. SAGRARIO YU MD [address] [place] [address], [phone], [facility] 07/15/2018 17:37:58 OBGyn Episode No OBEpisode recorded.
--- OUTSIDE RECORDS SUMMARY | 2025-04-11 14:46 | XMS_ITS | Data Portability ---
Author Organization [facility] Address [address] [place] [address] Care Team Providers Care Anaesthesiologist Name Role Phone ROBER LIVINGSTON MD OTHER MARAL VELEZ Medical Billing And Coding Instructor SHERI SCHMIDT Primary Care Provider [phone] Assessment Encounter Date Assessment Date Assessment LastModified by Organization Details LastModified Time 10/25/2021 10/25/2021 Ms. Watson has recurrent iron deficiency. Her Hgb is normal, but her iron is again low. She will get Feraheme today and will RTC in 1 year, with labs. She will be referred back to Dr. Velez for EGD & colonoscopy, for recurrent iron deficiency, family history of esophageal cancer (twin nephews and an uncle), and h/o tubular adenomas, as she was supposed to come back for colonoscopy in 2019, and has not yet done so. Creatinine has improved modestly. Not available 10/25/2021 21:19:50 07/22/2022 07/22/2022 Her CBC, iron, B12 & folate are all fine, so there is no role for IV iron at this time. Her creatinine has improved, from 2.2 in March, to 1.9. Her T4 is still high & TSH low, so she will drop levothyroxine to 75 mcg daily and recheck labs in @ 2 months. She can try topical diclofenac for her elbow, and may try Rolaids or methocarbamol for muscle cramps. She will keep her previously scheduled October appointment. Not available 07/22/2022 10:57:02 Plan of Treatment Reminders Order Date Submit Date Provider Last Modified By Organization Details Last Modified Time Details Appointments None recorded. Lab None recorded. Referral None recorded. Procedures None recorded. Surgeries None recorded. Imaging None recorded. Medication Orders methocarbam ol 750 mg tablet 2022 023 [facility] [id number], [address], [place], [address], 3 10:42:27 Patient TargetsNo targets recorded. Patient InstructionsNo instructions recorded. Reason for Referral None Reported. Results Created Date Observation Date Name Description Value Unit Range Abnormal Flag Note LastModifiedBy Organization Detail LastModifiedTime Result Notes None recorded. Problems Name Problem SNOMED Code Status Onset Date Resolution Date Notes Provider Name and Address Organization Details Recorded Time Anemia 995052230 Completed 201812/11/2018 CARMINE SO MD [address] [place] [address], [phone], [facility] 9 20:14:10 Iron deficiency anemia 66202193 Active 2018 CARMINE SO MD [address] [place] [address], [phone], [facility] 9 20:14:20 Cobalamin deficiency 525305698 Active 2018 CARMINE SO MD [address] [place] [address], [phone], [facility] 9 20:14:29 Chronic kidney disease stage 3B 384181177 Active 2019 CARMINE SO MD [address] [place] [address], [phone], [facility] 0 11:25:46 Problem Notes None recorded. Procedures Surgical History Date Name Laterality Status Provider Name and Address Organization Details Recorded Time 08/15/19 23 Hem/Onc Treatment Encounter completed Jolly Suárez [facility] 08/14/2022 14:14:39 08/08/19 23 Hem/Onc Treatment Encounter completed Jerome Moss [facility] 08/07/2022 09:40:54 11/02/19 22 Hem/Onc Treatment Encounter completed Mary Wynn [facility] 11/13/2021 15:49:40 07/14/20 22 Hem/Onc Treatment Encounter completed Tia Forrester [facility] 10/25/2021 13:37:02 01/16/20 21 Hem/Onc Treatment Encounter completed Nam Wynn [facility] 01/15/2021 15:55:29 01/09/20 21 Hem/Onc Treatment Encounter completed Nam Wynn [facility] 01/08/2021 16:02:52 03/27/20 20 Hem/Onc Treatment Encounter completed Shonna Fostershawna [facility] 03/27/2020 11:17:05 03/20/20 20 Hem/Onc Treatment Encounter completed Shonna Fostershawna [facility] 03/20/2020 15:44:38 12/19/19 19 Hem/Onc Treatment Encounter completed Gela Herring [facility] 12/18/2018 10:36:12 12/12/19 19 Hem/Onc Treatment Encounter completed Meg Villareal [facility] 12/11/2018 16:40:52 hysterectomy completed Miley Yi [facility] 12/11/2018 08:48:14 Cholecystectomy completed Miley Yi [facility] 12/11/2018 08:48:31 Imaging Results None recorded. Procedure Notes None recorded. Medical Equipment None Reported. Allergies Allergen ID Allergen Name Allergen Category Reaction Reaction Severity Criticality Documentation Date Start Date Code Code System Note Provider Name and Address Organization Details Recorded Time 097406 Zanaflex medicatio n Not available Not available Not available 12/11/2018 31004 6 RxNorm Miley medina [facility] 9 08:44:11 Medications Name Sig Start Date Stop Date Status Note LastModified by Organization Details LastModified Time losartan 50 mg tablet 12/11 completed Not Available Not Available Not Available potassium chloride ER 10 mEq capsule,ext ended release prn with Lasix 05/17 completed Not Available Not Available Not Available prednisone 10 mg tablet active Not Available Not Available Not Available azithromyci n 250 mg tablet active Not Available Not Available Not Available sucralfate 100 mg/mL oral suspension SWISH 5 ML in MOUTH AND swallow DIRECTED FOUR TIMES DAILY (USE AFTER food/drin k) active Not Available Not Available No t Available fluconazole 200 mg tablet TAKE ONE TABLET BY MOUTH EVERY DAY active Not Available Not Available No t Available prednisone 20 mg tablet TAKE 1 TABLET BY MOUTH ONCE DAILY FOR 7 DAYS active Not Available Not Available No t Available triamcinolo ne acetonide 0.5 % topical ointment active Not Available Not Available Not Available amlodipine 5 mg tablet Take 1 tablet every day by oral route. active Not Available Not Available No t Available omeprazole 40 mg capsule,del ayed release Take 1 capsule twice a day by oral route as needed for 90 days. active Not Available Not Available No t Available tramadol 50 mg tablet active Not Available Not Available No t Available levothyroxi ne 75 mcg tablet Take 1 tablet every day by oral route for 90 days. active Not Available Not Available No t Available levothyroxi ne 100 mcg tablet 07/22 completed Not Available Not Available Not Available levothyroxi ne 88 mcg tablet 07/22 completed Not Available Not Available Not Available methocarbam ol 750 mg tablet Take by oral route for 7 days. 2022 active Not Available Not Available Not Avai lable meclizine 25 mg tablet 12/18 completed Not Available Not Available Not Available amlodipine 10 mg tablet 1 daily 09/20 completed Not Available Not Available Not Available levothyroxi ne 50 mcg tablet Take 1 tablet every day by oral route. 03/20 completed Not Available Not Available Not Available pantoprazol e 40 mg tablet,eleazar yed release TAKE ONE TABLET BY MOUTH TWICE DAILY active Not Available Not Available No t Available cyanocobala min (vit B-12) 1,000 mcg/mL injection solution Inject 1 mL every month by subcutane ous route. 01/08 completed Not Available Not Available Not Available triamcinolo ne acetonide 0.1 % topical ointment active Not Available Not Available Not Available omeprazole 20 mg capsule,del ayed release Take 1 capsule twice a day by oral route. active Not Available Not Available No t Available codeine 10 mg-guaifene sin 100 mg/5 mL oral liquid TAKE 2 TEASPOONS FUL (10 ML) BY MOUTH EVERY 4 TO 6 HOURS NEEDED FOR cough active Not Available Not Available No t Available zolpidem 5 mg tablet TAKE 1 TABLET BY MOUTH AT BEDTIME NEEDED active Not Available Not Available No t Available furosemide 20 mg tablet Take 1 tablet every day by oral route. 09/20 completed Not Available Not Available Not Available estradiol 0.5 mg tablet Take 1 tablet every day by oral route. active Not Available Not Available No t Available clobetasol 0.05 % topical ointment Apply by topical route as needed for 15 days. 09/20 completed Not Available Not Available Not Available levofloxaci n 500 mg tablet 12/18 completed Not Available Not Available Not Available ketoconazol e 2 % topical cream active Not Available Not Available Not Available losartan 100 mg tablet Take 1 tablet every day by oral route. active Not Available Not Available No t Available Ventolin HFA 90 mcg/actuati on aerosol inhaler 12/18 completed Not Available Not Available Not Available nitrofurant oin monohydrate /macrocryst als 100 mg capsule TAKE 1 CAPSULE BY MOUTH TWICE DAILY FOR 7 DAYS 11/02 completed Not Available Not Available Not Available estradiol 12/11 completed Not Available Not Available Not Available folic acid daily active Not Available Not Av ailable Not Available biotin daily active Not Available Not Availa ble Not Available Vitamin D3 daily active Not Available Not Av ailable Not Available vitamin B12 1,000 mcg-folic acid [address] 1 tablet twice a week by sublingua l route. active Not Available Not Available No t Available Vitals Date Recorded Body height Body mass index (BMI) Body weight Body temperature Heart rate Oxygen saturation Systolic And Diastolic Provider Name and Address Organization Details Last Updated DateTime 3 152.4 cm 24.1 kg/m2 10969.3 1 g 97.7 [degF] 73 /min 99 % 136/65 mm[Hg] Natalie Pinon [facility] 3 09:46:26 Date Recorded Body height Body temperature Heart rate Oxygen saturation Systolic And Diastolic Provider Name and Address Organization Details Last Updated DateTime 3 152.4 cm 97.5 [degF] 83 /min 97 % 120/70 mm[Hg] Jerome Moss [facility] 3 08:33:04 Date Recorded Body height Body temperature Heart rate Oxygen saturation Systolic And Diastolic Provider Name and Address Organization Details Last Updated DateTime 3 152.4 cm 97.7 [degF] 75 /min 97 % 117/72 mm[Hg] Jolly Suárez [facility] 3 14:11:44 Date Recorded Body height Body mass index (BMI) Body weight Pain severity - 0-10 verbal numeric rating [Score] - Reported Body temperature Heart rate Oxygen saturation Systolic And Diastolic Provider Name and Address Organization Details Last Updated DateTime 2 152.4 cm 25.5 kg/m2 18274.4 6 g 0 97.5 [degF] 76 /min 98 % 121/72 mm[Hg] Gen Isabel [facility] 2 10:53:21 Social History Question Answer Notes LastModified by Organizat ion Details LastModified Time Tobacco Smoking Status [facility]11/2018 08:47:23 How Much Tobacco Do You Chew? None [email or web address] Information not available 12/11/2018 Have You Been To An Area Known To Be High Risk For COVID-19? No [email or web address] Information not available 11/03/2019 Education Level High School [email or web address] Informat ion not available 11/03/2019 Learning Preferences Verbal Information not available 10/25/2021 Would You Like Any HELP Quitting Tobacco? No Information not available 10/25/2021 Exposure To Smoke No Information not available 10/25/2021 Marital Status [email or web address] Informatio n not available 12/11/2018 What Was The Date Of Your Most Recent Tobacco Screening? 07/22/2022 [email or web address] Information not available 07/22/2022 How Much Tobacco Do You Smoke? No Information not available 05/17/2019 Has Tobacco Cessation Counseling Been Provided? No [email or web address] Information not available 01/08/2021 How Many Years Have You Smoked Tobacco? 0 Information not available 05/17/2019 Sex: Unknown Functional Status Question Answer Note LastModified by Organizat ion Details LastModified Time Do you use any illicit or recreational drugs? No [email or web address] Information not available 01/08/2021 Do you or have you ever used any other forms of tobacco or nicotine? No Information not available 01/08/2021 What is your level of alcohol consumption? None [email or web address] Information not available 12/11/2018 Do you or have you ever used smokeless tobacco? Never used [email or web address] tobacco Information not available 05/17/2019 What is your occupation? retired [email or web address] Information not available 12/11/2018 Do you or have you ever used e-cigarettes or vape? Never used electronic cigarettes Information not available 05/17/2019 Mental Status None recorded. Family History Relationship Description Onset Age of this Age Resolved Age Notes LastModified by Organization Details LastModified Time Father Malignant neoplastic disease [email or web address] Not available 12/11 08:47:16 Mother Malignant neoplastic disease [email or web address] Not available 12/11 08:47:16 Medical History No medical history recorded. Gynecological HistoryNo gynecological history recorded. Obstetrics History GPAL:G 0 P 0 0 0 0 Immunizations Vaccine Type Date Status Note Provider Nam e and Address Organization Details Recorded Time COVID-19, mRNA, LNP-S, PF, 100 mcg/0.5mL dose or 50 mcg/0.25mL dose 05/11/2020 completed Shanthi Marcus [facility] 09/20/2020 11:39:10 COVID-19, mRNA, LNP-S, PF, 100 mcg/0.5mL dose or 50 mcg/0.25mL dose 06/08/2020 completed Shanthi Marcus [facility] 09/20/2020 11:39:17 COVID-19, mRNA, LNP-S, PF, 100 mcg/0.5mL dose or 50 mcg/0.25mL dose 12/25/2020 completed Shanthi Marcus [facility] 01/08/2021 12:18:11 Past Encounters Encounter ID Performer Location Encounter Start Date Encounter Closed Date Diagnosis/Indication Diagnosis SNOMED-CT Code Diagnosis ICD10 Code Diagnosis IMO Codes Diagnosis Note [id number] CARMINE SO MD [facility] [address] [place] [address] 01/01/2017 10:43:28 01/01/2017 12:01:35 [id number] RELL NICHOLAS MD [facility] [address] [place] [address] 01/02/2017 08:54:42 01/07/2017 10:14:00 [id number] CARMINE SO MD [facility] [address] [place] [address] 01/09/2017 09:40:03 01/10/2017 16:22:27 [id number] CARMINE SO MD [facility] [address] [place] [address] 07/30/2017 13:16:34 07/30/2017 16:19:55 [id number] CARMINE SO MD [facility] [address] [place] [address] 07/30/2017 16:23:19 08/04/2017 17:34:48 [id number] CARMINE SO MD [facility] [address] [place] [address] 08/06/2017 09:40:51 08/08/2017 13:41:22 [id number] CARMINE SO MD [facility] [address] [place] [address] 01/29/2018 10:07:45 01/29/2018 11:40:10 [id number] CARMINE SO MD [facility] [address] [place] [id number] 07/15/2018 09:52:56 07/15/2018 11:36:17 [id number] CARMINE SO MD [facility] [address],[facility] [address] [place] [address] 07/15/2018 09:52:56 07/15/2018 11:36:17 [id number] CARMINE SO MD [facility] [address] [place] [address] 07/23/2018 10:54:30 07/27/2018 09:24:46 [id number] CARMINE SO MD [facility] [address] [place] [address] 12/11/2018 13:34:20 12/11/2018 15:58:14 Iron deficiency anemia 29845629 D50.9 Cobalamin deficiency 190 602318 E53.8 [id number] CARMINE SO MD [facility] [facility] [address] [place] [address] 12/11/2018 16:14:34 12/16/2018 03:46:46 [id number] RELL NICHOLAS MD HEM/ONC [facility] [address] [place] [address] 12/18/2018 09:25:32 01/02/2019 03:46:38 [id number] CARMINE SO MD H[facility]ONC [facility] [address] [place] [address] 05/17/2019 10:22:07 05/17/2019 11:46:17 Cobalamin deficiency 302648462 E53.8 Iron defic iency anemia 24553321 D50.9 Chronic ki dney disease stage 3B 715141708 N18.3 [id number] CARMINE SO MD [facility] [address] [place] [address] 11/03/2019 12:58:12 11/03/2019 15:04:21 Iron deficiency anemia 10242532 D50.9 [id number] CARMINE SO MD [facility]C [facility] [address] [place] [address] 03/20/2020 13:25:28 03/20/2020 15:02:27 Iron deficiency anemia 54243137 D50.9 Cobalamin deficiency 190 088935 E53.8 Chronic ki dney disease stage 3B 051422718 N18.32 [id number] CARMINE SO MD H[facility]ONC [facility] [address] [place] [address] 03/20/2020 15:07:32 03/20/2020 16:08:01 [id number] CARMINE SO MD HEM[facility]ONC [facility] [address] [place] [address] 03/27/2020 10:25:15 03/27/2020 12:41:30 [id number] CARMINE SO MD HEM/ONC [facility]ED [address] [place] [address] 09/20/2020 11:13:11 09/20/2020 12:59:04 Iron deficiency anemia 84323893 D50.9 Cobalamin deficiency 190 094483 E53.8 Chronic ki dney disease stage 3B 429237201 N18.32 [id number] CARMINE SO MD [facility] [address] [place] [address] 01/08/2021 11:40:31 01/08/2021 13:16:45 Iron deficiency anemia 46652872 D50.9 Cobalamin deficiency 190 984930 E53.8 Chronic ki dney disease stage 3B 216180336 N18.32 [id number] CARMINE SO MD H[facility]C [facility] [address] [place] [address] 01/08/2021 13:10:30 01/08/2021 16:04:27 [id number] CARMINE SO MD HEM/ONC [facility]ED [address] [address] 01/15/2021 11:22:45 01/15/2021 15:56:17 [id number] CARMINE SO MD HEM/ONC [facility] [address] [place] [address] 10/25/2021 10:14:48 10/25/2021 11:49:43 Chronic kidney disease stage 3B 476091328 N18.32 Cobalamin deficiency 190 931013 E53.8 Iron defic iency anemia 79370331 D50.9 [id number] CARMINE SO MD [facility] [address] [address] 10/25/2021 11:46:29 10/25/2021 13:38:57 [id number] RELL NICHOLAS MD H[facility]C [facility] [address] [place] [id number] 11/01/2021 11:07:10 11/01/2021 12:57:45 [id number] CARMINE SO MD [facility] [address] [place] [address] 07/22/2022 09:39:22 07/22/2022 10:48:34 Iron deficiency anemia 87101673 D50.9 Chronic ki dney disease stage 3B 515640103 N18.32 Spasm of back muscles 20 2420479 M62.830 [id number] CARMINE SO MD [facility] [address] [place] [address] 08/07/2022 08:11:05 08/07/2022 09:41:39 [id number] CARMINE SO MD [facility] [address] [place] [address] 08/14/2022 11:16:38 08/14/2022 14:16:09 Health Concerns Section Related Observation LastModified by Organization Detai ls LastModified Time None Recorded Concern Status LastModified by Organization Details LastModified Time None Recorded Advance Directives Directive None Recorded Payers Insurance Date Sequence Insurance Name Policy Number Policy Chavez Covered Member ID Chavez Member ID Guarantor Name 09/03/2024 1 [employer] (MEDICARE REPLACEMENT/ ADVANTAGE - PPO) [id number] Asmita Eaton Watson [id number] Asmita A Watson 09/03/2024 1 [place] Asmita Eaton Watson [id number] Asmita Watson 12/27/2016 1 [employer] (MEDICARE REPLACEMENT/ ADVANTAGE - PPO) Asmita Eaton Watson [id number] Asmita Eaton Watson 03/08/2020 2 [employer] (INDEMNITY) Asmita Eaton Watson [id number] Asmita Eaton Watson 01/29/2017 2 [employer] (MEDICARE SUPPLEMENT) Asmita Watson Notes Date Note Type Note Provider Name and Address Organization Details Recorded Time 10/25/2021 text/html [facility] HPIReported b y PatientVisit DetailsFor patient accompanied by, patient reportspatient accompanied by family. For advanced directives / biobank authorizations, patient reportsadvanced directives? yes. For discharge, patient reportsdischarge disposition stableanddischarge mode ambulatory.Distress ScreeningFor physical problems, patient reportseating/ingestion problem,fatigue,sleep issues, andtingling in hands and feet. For distress screening, patient reportshas the distress screening been completed in the last 45 days? yesanddistress level 2. For practical problems, patient reportsno practical problems. For family problems, patient reportsno family problems. For emotional problems, patient reportsno emotional problems. For spiritual/islam, patient reportsspiritual/religi ous problems? no.NutritionFor nutrition screening, patient reportsnutrition screening noandnutrition counseling last 6 months? no. Ms. Watson is a pleasant 81 yo lady with recurrent iron deficiency anemia. She gets IV Feraheme about once a year. She had EGD in January [address] Velez, with findings of a moderate hiatal hernia and some large gastric polyps, which were removed and were felt to be the cause of her GI blood loss. She had colonoscopy in February 2017 with findings of tubular adenomas, with repeat colonoscopy recommended in 2 years. She also has history of B12 deficiency, responsive to B12 orally and parenterally. Other medical history is significant for stage IIIB chronic kidney disease. CARMINE SO MD [address] [place] [address], [phone], [facility] 10/25/2021 21:21:37 07/22/2022 text/html HPIReported b y PatientVisit DetailsFor patient accompanied by, patient reportspatient accompanied by family. For advanced directives / biobank authorizations, patient reportsadvanced directives? yes. For discharge, patient reportsdischarge disposition stableanddischarge mode ambulatory.Distress ScreeningFor physical problems, patient reportseating/ingestion problem,fatigue, andsleep issues. For distress screening, patient reportshas the distress screening been completed in the last 45 days? yesanddistress level 4. For practical problems, patient reportsno practical problems. For family problems, patient reportsno family problems. For emotional problems, patient reportsno emotional problems. For spiritual/islam, patient reportsspiritual/religi ous problems? no.NutritionFor nutrition screening, patient reportsnutrition screening noandnutrition counseling last 6 months? no. Ms. Watson is a pleasant 82 yo lady with recurrent iron deficiency anemia. She gets IV Feraheme about once a year. She had EGD in January [address] Velez, with findings of a moderate hiatal hernia and some large gastric polyps, which were removed and were felt to be the cause of her GI blood loss. She had colonoscopy in February 2017 with findings of tubular adenomas, with repeat colonoscopy recommended in 2 years. She also has history of B12 deficiency, responsive to B12 orally and parenterally. Other medical history is significant for stage IIIB chronic kidney disease. CARMINE SO MD [address] [place] [address], [phone], [facility] 07/22/2022 10:58:25 OBGyn Episode No OBEpisode recorded.
--- OUTSIDE RECORDS SUMMARY | 2025-04-11 14:46 | XMS_ITS | Clinical Summary ---
Author Organization [facility] Address [address] [place] [address] Care Team Providers Care Aquarium Tank Attendant Name Role Phone Sagrario Yu MD Unavailable [phone] Jovany Mark MD Primary Care Provider [phone] Allergies Active Allergy Reactions Criticality Noted Date Comments Cephalexin Unknown - Patient st ates they do not know rxn details Low 03/24/2020 Hydrocodone-Acetaminophen Anxiety Low 04/02/2024 Tizanidine Other - please docum ent in the comment field,Unknown - Patient states they do not know rxn details High 12/28/2015 Medications amLODIPine (Norvasc) 5 MG tablet 1 (one) time each day. 03/27/2020 Active folic acid (Folvite) 800 MCG tablet TAKE 1 TABLET DAILY DIRECTED. 03/27/2020 Active losartan (Cozaar) 100 MG tablet 1 (one) time each day. 03/24/2020 Active BIOTIN PO biotin daily Active estradiol (Estrace) 0.5 MG tablet 01/11/2023 Active levothyroxine (Synthroid, Levoxyl) 75 MCG tablet 07/04/2023 Active omeprazole (PriLOSEC) [address] capsule 06/07/2023 Active Cyanocobalamin (VITAMIN B 12 PO) Take by mouth. Active cholecalciferol (Vitamin D3) 25 MCG (1000 UT) tablet Take by mouth 1 (one) time each day. Active diphenhydrAMINE- acetaminophen (Tylenol PM) 25-500 MG per tablet Take 1 tablet by mouth at night as needed for sleep. Active Active Problems Problem Noted Date Diagnosed Date Hypertensive chronic kidney disease with stage 1 through stage 4 chronic kidney disease, or unspecified chronic kidney disease 04/02/2024 Chronic kidney disease-mineral and bone disorder (CKD-MBD) 04/02/2024 Hyponatremia 04/02/2024 Vitamin D deficiency 05/22/2020 CKD stage 3b, GFR 30-44 ml/min 03/27/2020 Iron deficiency anemia 01/31/2018 Benign essential hypertension 01/29/2018 Family History Medical History Relation Name Comments Liver cancer Father Other cancer Mother Relation Name Status Comments Father Mother Social History Tobacco Use Types Packs/Day Years Used Date Smoking Tobacco: Never Passive Smoke Exposure: Never Smokeless Tobacco: Never Tobacco Cessation:Counseling Given: Not Answered PHQ-2 Answer Date Recorded Patient Health Questionnaire-2 Score 0 02/13/2023 PHQ-2A Answer Date Recorded Patient Health Questionnaire-2 Score 0 02/13/2023 Comments No Sex and Gender Information Value Date Recorded Sex Assigned at Not on file Legal Sex Female 6:20 PM EDT Gender Identity Not on file Sexual Orientation Not on file Last Filed Vital Signs Vital Sign Reading Time Taken Comments Blood Pressure 133/66 09/24/2024 10:30 AM EDT Pulse 75 09/24/2024 10:30 AM EDT Temperature 35.9 C (96.6 F) 09/24/2024 9:22 AM EDT Respiratory Rate 17 09/10/2024 10:02 AM EDT Oxygen Saturation 98% 09/24/2024 10:30 AM EDT Inhaled Oxygen Concentration - - Weight 57.4 kg (126 lb 8.7 oz) 09/24/2024 10:30 AM EDT Height 156.2 cm (5' 1.5 ) 09/10/2024 10:02 AM ED T Body Mass Index 23.52 09/10/2024 10:02 AM EDT Plan of Treatment Upcoming Encounters Date Type Department Care Team (Late st Contact Info) Description 04/15/2025 9:20 AM EST Office Visit [facility] [address] [place] [id number] Dylan Swartz MD [address] [place] [phone] 09/23/2025 10:30 AM EDT Office Visit [facility] [address] [place] [address] Sagrario Yu MD [address] [place] [address] Health Maintenance Due Date Last Done Comments [facility]-Bone Density Scan 1938 [facility]-Medicare Annual Wellness (AWV) 1938 [facility]-Infant/Child/Adol SDOH Screenings 1938 [facility]- SDOH Screenings 1956 [facility]-Adult SDOH Screenings 1956 [facility]-DTaP,Tdap,and Td Vaccines (1 - Tdap) 1957 [facility]-Zoster Vaccines (1 of 2) 1988 [facility]-RSV Vaccine: 60+ Years or (1 - 1-dose 75+ series) 2013 [facility]-Depression Screening 02/14/2024 02/13/2023 [id number] Vaccine (2024- season) 2024 12/21/2020, 06/08/2020, 05/11/2020 [facility]-Influenza Vaccine Completed 12/30/2024 [facility]-Pneumococcal Vaccine: 50+ Years Completed 12/30/2024 HPV Vaccines (No Doses Required) Completed [facility]-HIB Vaccines Aged Out No longer e ligible based on patient's age to complete this topic [facility]-Hepatitis A Vaccines Aged Out No longer eligible based on patient's age to complete this topic [facility]-IPV Vaccines Aged Out No longer e ligible based on patient's age to complete this topic [facility]-Rotavirus Vaccines Aged Out No lo nger eligible based on patient's age to complete this topic Insurance Care Teams Aquarium Tank Attendant Relationship Specialty Start Date End Date Jovany Mark MD [facility] [id number] PCP - General Internal Medicine 07/31/23 Sagrario Yu MD [address] [address] Medical Oncologist Hematology and Oncology 07/22/23
[2025-04-11 15:01] LABS: Microscopic, Urine URINE MICROSCOPIC (MICROSCOPIC)
[2025-04-11 15:26] LABS: Hematocrit 39.8 % (37.0-47.0); Hemoglobin 13.0 g/dL (12.2-16.2); Mean Corpuscular HGB Conc 32.7 g/dL (31.8-35.4); Mean Corpuscular Hemoglobin 31.6 pg (27.0-31.2); Mean Corpuscular Volume 96.6 fl (81-99); Nucleated Red Blood Cells % 0 %; Platelet Count 304 K/mm3 (142-424); Red Blood Count 4.12 M/mm3 (4.20-5.40); Red Cell Distribution Width-SD 48.1 fL; White Blood Count 6.6 K/mm3 (4.8-10.8)
[2025-04-11 16:05] LABS: Bilirubin,Urine Negative (Negative); Color,Urine YELLOW (Yellow); Glucose,Urine (UA) Negative (Negative); Ketones,Urine TRACE (Negative); Leukocyte Esterase,Urine Negative (Negative); PH,Urine 6.0 (5.0-8.5); Protein,Urine TRACE (Negative); Specific Gravity, Urine 1.020 (1.005-1.030); Urobilinogen,Urine 0.2 EU/dl (0.2)
[2025-04-11 16:36] LABS: Bacteria,Urine 2+ /lpf
[2025-04-11 16:42] LABS: Albumin Level 3.8 g/dl (3.5-5.0); Anion Gap 8.9 mEq/L (5-15); Blood Urea Nitrogen 17 mg/dl (7-17); Calcium 8.8 mg/dl (8.4-10.2); Carbon Dioxide 26 mmol/L (22.0-30.0); Chloride 106 mmol/L (98-107); Creatinine,Serum 1.30 mg/dl (0.52-1.04); Estimated Glomerular Filt Rate 39 ml/min (>60); GFR (African American) 47 ML/MIN (>60); Glucose 110 mg/dl (74-100); Phosphorous 2.8 mg/dl (2.5-4.5); Potassium 3.9 mmoL/L (3.5-5.1); Sodium 137 mmol/L (136-145)
[2025-04-11 16:54] LABS: 25-OH Vitamin D, Total 46.6 ng/mL (30-100)
[2025-04-12 11:18] LABS: Albumin, U 29.1 ug/mL (Not Estab.)
== END 2025-04-11 23:59 | disposition home or self-care (01) ==
PROVIDERS: PCP Internal Medicine Adolescent Medicine; Visit Provider Student in an Organized Health Care Education/Training Program
DX: N18.32 Chronic kidney disease, stage 3b (principal)
CPT/HCPCS: 36415; 80069; 81001; 82043; 82306; 82570; 83970; 84156; 85027; 87086